=== PATIENT | female | born 1970 | race Caucasian/White ===

== ENCOUNTER 2019-04-07 12:58 | Emergency (ER) | payer OTHER ==
--- NOTE | 2019-04-07 13:16 | ERPHSYRPT ---
- History of Present Illness Time Seen by Provider: 04/07/19 13:09 Historian: patient, EMS Exam Limitations: no limitations Physician History: Patient is a 48-year-old female with spina bifida. She underwent a urologic procedure by Dr. Sosa at [facility] in [place]. Procedure was done last week. Patient has 2 abdominal wall stomas. There is abnormal fluid discharge from stoma site. Urologist was contacted and the doctor ordered transfer of the patient to [place]. However, ambulance service would not transport the patient to a distant facility without first being evaluated at a closer facility. I spoke with Dr. Sosa at 1300. He accepts the patient in transfer to [facility]. We are to perform a medical screening exam. Other work-up will be performed at [facility] under his care and direction Timing/Duration: today Activities at Onset: none Quality: aching Abdominal Pain Onset Location: epigastric Pain Radiation: no radiation Severity of Pain-Max: mild Severity of Pain-Current: mild Modifying Factors: Improves With: analgesics. Worsens With: vomiting Associated Symptoms: No chest pain, No diaphoresis, No diarrhea, No fever/chills , No loss of appetite, No nausea, No vomiting Previous symptoms: no prior history - Review of Systems Constitutional: No Symptoms Eyes: No Symptoms Ears, Nose, & Throat: No Symptoms Respiratory: No Symptoms Cardiac: No Symptoms Abdominal/Gastrointestinal: Abdominal Pain (mild epigastic) Genitourinary Symptoms: Other (abnl urostomy output) Musculoskeletal: No Symptoms Skin: No Symptoms Neurological: No Symptoms Psychological: No Symptoms Endocrine: No Symptoms Hematologic/Lymphatic: No Symptoms Immunological/Allergic: No Symptoms All Other Systems: Reviewed and Negative - Past Medical History Neurological History: Other Cardiac History: No Pertinent History Respiratory History: No Pertinent History Endocrine Medical History: Adrenal Insufficiency Musculoskeletal History: No Pertinent History GI Medical History: No Pertinent History History: No Pertinent History Psycho-Social History: No Pertinent History Female Reproductive Disorders: No Pertinent History Other Medical History: spina bifida, Thoracolumbar fusion, L sided ventricular peritoneal shunt - Past Surgical History Neuro Surgical History: No Pertinent History Cardiac: No Pertinent History Respiratory: No Pertinent History Gastrointestinal: No Pertinent History Genitourinary: Other Musculoskeletal: No Pertinent History - Physical Exam General Appearance: no apparent distress, alert Eye Exam: PERRL/EOMI, eyes nml inspection Ears, Nose, Throat Exam: normal ENT inspection, moist mucous membranes Neck Exam: normal inspection, non-tender, supple, full range of motion Respiratory Exam: normal breath sounds, lungs clear, airway intact, No chest tenderness, No respiratory distress Cardiovascular Exam: regular rate/rhythm, normal heart sounds, normal peripheral pulses Gastrointestinal/Abdomen Exam: soft, normal bowel sounds, tenderness (mild epigastric), other (both abd wall ostomy sites with cathers in place) Pelvic Exam: not done Rectal Exam: not done Back Exam: normal inspection, normal range of motion, No CVA tenderness Extremity Exam: normal inspection, normal range of motion, pelvis stable Neurologic Exam: alert, oriented x 3, cooperative, 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 Ian Ortiz' nurse. She transferred me to Dr. Sosa, patient's urologist. He accepts the patient in transfer. He does not want the patient to go to the emergency department. We are to call the transfer center and a bed will be obtained and he will accept the patient in transfer. Counseled pt/family regarding: diagnosis - Departure Departure Disposition: Transfer Clinical Impression: Complication of urostomy Condition: Stable Critical Care Time: No Referrals: TENZIN LEMOS [Primary Care Provider] -
[2019-04-07] MEDS ORDERED: Hydromorphone 1 mg/ml Ampule IV ONE (13:44)
[2019-04-07] MEDS ORDERED: Zofran 4 MG/2 ML VIAL IV ONE (13:45)
[2019-04-07] MEDS ORDERED: Zofran 4 MG/2 ML VIAL ONE (13:47)
[2019-04-07] MEDS ORDERED: Hydromorphone 1 mg/ml Ampule ONE (13:48)
[2019-04-07 15:56] VITALS: BP 100/56; PULSE 100; O2SAT 94
== END 2019-04-07 17:03 | disposition short-term general hospital (02) ==
LOC: ED 12:58
DX: N99.528 Other complication of incontinent external stoma of urinary tract (principal); Z98.890 Other specified postprocedural states
CPT/HCPCS: 36000; 93041; 96374; 96375; 99285; J1170; J2405

== ENCOUNTER 2021-09-21 14:30 | Emergency (ER) | payer OTHER ==
--- NOTE | 2021-09-21 14:54 | ERPHSYRPT ---
- History of Present Illness Time Seen by Provider: 09/21/21 14:54 Source: patient Exam Limitations: no limitations Physician History: This is a 51-year-old white female has a history of spina bifida and adrenal insufficiency and does not have sensation in her lower extremities and does not ambulate, who presents with tip of her toes on the left and right feet that a family puppy bit 2 days ago. She has been keeping the area clean but this morning, she noticed there was some blood in both of these areas and when looking more closely at it, the bite sites were larger. She thinks the dog bit the same sites again last night while she was sleeping. Her tetanus status is not up-to-date Timing/Duration: day(s) (2) Severity: mild Location: feet (The second left toe and the second and third right toe tips have bite dumont present.) Possible Causes: other (Dog bite) Allergies/Adverse Reactions: latex Allergy (Verified 09/21/21 14:52) Hx Tetanus, Diphtheria Vaccination/Date Given: No Hx Influenza Vaccination/Date Given: No Hx Pneumococcal Vaccination/Date Given: No Travel Risk - International Travel Have you traveled outside of the country in past 3 weeks: No - Coronavirus Screening Are you exhibiting any of the following symptoms?: No Close contact with a COVID-19 positive Pt in past 14-21 Days: No - Review of Systems Constitutional: No Symptoms Eyes: No Symptoms Ears, Nose, & Throat: No Symptoms Respiratory: No Symptoms Cardiac: No Symptoms Abdominal/Gastrointestinal: No Symptoms Genitourinary Symptoms: No Symptoms Musculoskeletal: No Symptoms Skin: Cellulitis (Mild in the area of dog bites as stated above), Other (Dog bite to toes as stated above) Neurological: No Symptoms Psychological: No Symptoms Endocrine: No Symptoms Hematologic/Lymphatic: No Symptoms Immunological/Allergic: No Symptoms All Other Systems: Reviewed and Negative - Past Medical History Pertinent Past Medical History: Yes Neurological History: Other Cardiac History: No Pertinent History Respiratory History: No Pertinent History Endocrine Medical History: Adrenal Insufficiency Musculoskeletal History: No Pertinent History GI Medical History: No Pertinent History History: No Pertinent History Psycho-Social History: No Pertinent History Female Reproductive Disorders: No Pertinent History Other Medical History: spina bifida, Thoracolumbar fusion, L sided ventricular peritoneal shunt - Past Surgical History Past Surgical History: Yes Neuro Surgical History: No Pertinent History Cardiac: No Pertinent History Respiratory: No Pertinent History Gastrointestinal: No Pertinent History Genitourinary: Other Musculoskeletal: No Pertinent History Other Surgical History: stoma tube cath. supra pubic cath. shunt. back. bladder. gisella. breast reduction - Social History Smoking Status: Never smoker Exposure to second hand smoke: Yes Drug Use: none Patient Lives Alone: No - Nursing Vital Signs Nursing Vital Signs: Initial Vital Signs Temperature 98.4 F 09/21/21 14:53 Pulse Rate 93 H 09/21/21 14:53 Respiratory Rate 17 09/21/21 14:53 Blood Pressure 118/79 09/21/21 14:53 O2 Sat by Pulse Oximetry 99 09/21/21 14:53 Pain Scale Pain Intensity 0 - Physical Exam General Appearance: no apparent distress, alert Eye Exam: PERRL/EOMI, eyes nml inspection Ears, Nose, Throat Exam: normal ENT inspection, moist mucous membranes Neck Exam: normal inspection, non-tender, supple, full range of motion Respiratory Exam: normal breath sounds, lungs clear, airway intact, No chest tenderness, No respiratory distress Cardiovascular Exam: regular rate/rhythm, normal heart sounds, normal peripheral pulses Gastrointestinal/Abdomen Exam: No tenderness Pelvic Exam: not done Rectal Exam: not done Back Exam: normal inspection, normal range of motion, No CVA tenderness, No vertebral tenderness Extremity Exam: other (Patient's bilateral lower extremities are compatible with individuals with spina bifida. She has open sores caused by dog bites on the second toe of the left foot and the second and third toes of the right foot. There is mild redness of each of these toes that is just proximal to the open ulcerati) Skin Exam: other (There is no evidence of proximal streaking onto the feet bilaterally) Lymphatic Exam: No adenopathy SpO2 Interpretation: normal O2 Delivery: Room Air - Course Nursing assessment & vital signs reviewed: Yes Ordered Tests: Medication Summary Discontinued Medications Generic Name Dose Route Start Last Admin Trade Name Freq PRN Reason Stop Dose Admin Amoxicillin/Clavulanate Potassium 500 mg 09/21/21 15:15 Amox Tr/Potassium Clavulanate 500 Mg Tablet PO 09/21/21 15:16 STAT ONE Amoxicillin/Clavulanate Potassium Confirm 09/21/21 15:17 Amox Tr/Potassium Clavulanate 500 Mg Tablet Administered 09/21/21 15:18 Dose 500 mg .ROUTE .STK-MED ONE Diphtheria/Tetanus/Acell Pertussis 0.5 ml 09/21/21 15:14 Tdap --Diph,Pertuss(Acell),Tet Vac/Pf 0.5 Ml Vial IM 09/21/21 15:15 .ONCE ONE Diphtheria/Tetanus/Acell Pertussis Confirm 09/21/21 15:17 Tdap --Diph,Pertuss(Acell),Tet Vac/Pf 0.5 Ml Vial Administered 09/21/21 15:18 Dose 0.5 ml IM .STK-MED ONE - Progress Progress: unchanged Counseled pt/family regarding: diagnosis, need for follow-up, rad results - Departure Departure Disposition: Home Clinical Impression: Dog bite of foot, Cellulitis Condition: Stable Critical Care Time: No Referrals: TENZIN LEMOS [Primary Care Provider] - Follow up/PCP as directed Additional Instructions: Keep bite sites clean daily with soap and water. Take the antibiotics as prescribed. Follow-up with your primary care physician for worsening symptoms or persistent symptoms. Prescriptions: Amoxicillin/Potassium Clav [Augmentin 500-125 Tablet] 1 each PO TID 5 Days #15 tablet
[2021-09-21] MEDS ORDERED: Adacel Vial IM ONE ×2 (15:14→15:17)
[2021-09-21] MEDS ORDERED: Augmentin 500-125 Tablet PO ONE (15:15)
[2021-09-21 15:17] VITALS: O2SAT 99
[2021-09-21] MEDS ORDERED: Augmentin 500-125 Tablet ONE (15:17)
[2021-09-21 15:34] VITALS: BP 160/77; PULSE 96
== END 2021-09-21 15:43 | disposition home or self-care (01) ==
LOC: ED 14:30
DX: S90.475A Other superficial bite of left lesser toe(s), initial encounter (principal); S90.474A Other superficial bite of right lesser toe(s), initial encounter; L03.032 Cellulitis of left toe; L03.031 Cellulitis of right toe; W54.0XXA Bitten by dog, initial encounter; Q05.9 Spina bifida, unspecified; E27.40 Unspecified adrenocortical insufficiency
CPT/HCPCS: 90471; 90715; 99282; A9270-GY

== ENCOUNTER 2022-11-22 15:29 | Emergency (ER) | payer MEDICAID ==
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
[2022-11-22] MEDS ORDERED: KEFLEX 500 MG PO ONE (15:47)
[2022-11-22 15:52] VITALS: RESP 16; TEMP 97.8
[2022-11-22] MEDS ORDERED: KEFLEX 500 MG ONE (16:36)
[2022-11-22 17:02] VITALS: BP 108/74; PULSE 95; O2SAT 99
== END 2022-11-22 17:13 | disposition home or self-care (01) ==
LOC: ED 15:29
DX: T24.212A Burn of second degree of left thigh, initial encounter (principal); X10.0XXA Contact with hot drinks, initial encounter; Q05.9 Spina bifida, unspecified; Z28.310 Unvaccinated for COVID-19
CPT/HCPCS: 87070; 87077; 87186; 99282; A9270-GY

== ENCOUNTER 2023-01-08 14:27 | Emergency (ER) | payer MEDICAID ==
[2023-01-08 14:35] VITALS: TEMP 97
--- NOTE | 2023-01-08 14:40 | ERPHSYRPT ---
- History of Present Illness Time Seen by Provider: 01/08/23 14:39 Source: patient, EMS Exam Limitations: no limitations Physician History: This is a 52-year-old white female patient who was brought to the emergency department by the ambulance service/paramedics. Patient has a history of spina bifida, adrenal insufficiency and thoracolumbar fusion. She states in the last month she has noticed her bilateral lower extremities having increased swelling present. There was a blister to the top of her right foot which drained today while getting a bath. Timing/Duration: worse, other (Worsening swelling bilateral lower extremities in the last month) Quality: painful Severity: mild Location: feet (Bilateral feet and ankle swelling with) Associated Symptoms: blisters (Dorsal aspect right foot) Allergies/Adverse Reactions: latex Allergy (Verified 01/08/23 14:30) Hx Tetanus, Diphtheria Vaccination/Date Given: No Hx Influenza Vaccination/Date Given: No Hx Pneumococcal Vaccination/Date Given: No Travel Risk - International Travel Have you traveled outside of the country in past 3 weeks: No - Coronavirus Screening Are you exhibiting any of the following symptoms?: No Close contact with a COVID-19 positive Pt in past 14-21 Days: No - Vaccine Status Have you recieved a Covid-19 vaccination: No - Review of Systems Constitutional: No Symptoms Eyes: No Symptoms Ears, Nose, & Throat: No Symptoms Respiratory: No Symptoms Cardiac: No Symptoms Abdominal/Gastrointestinal: No Symptoms Genitourinary Symptoms: No Symptoms Musculoskeletal: No Symptoms Skin: Other (Swelling bilateral feet and ankles. Unroofed blister dorsal aspect right foot) Neurological: No Symptoms Psychological: No Symptoms Endocrine: No Symptoms Hematologic/Lymphatic: No Symptoms Immunological/Allergic: No Symptoms All Other Systems: Reviewed and Negative - Past Medical History Pertinent Past Medical History: Yes Neurological History: Other ENT History: No Pertinent History Cardiac History: No Pertinent History Respiratory History: No Pertinent History Endocrine Medical History: Adrenal Insufficiency Musculoskeletal History: No Pertinent History GI Medical History: No Pertinent History History: No Pertinent History Psycho-Social History: No Pertinent History Female Reproductive Disorders: No Pertinent History Other Medical History: spina bifida, Thoracolumbar fusion, L sided ventricular peritoneal shunt, - Past Surgical History Past Surgical History: Yes Neuro Surgical History: No Pertinent History Cardiac: No Pertinent History Respiratory: No Pertinent History Gastrointestinal: No Pertinent History Genitourinary: Other Musculoskeletal: No Pertinent History Other Surgical History: stoma tube cath. supra pubic cath. shunt. back. bladder. gisella. breast reduction - Social History Smoking Status: Never smoker Exposure to second hand smoke: Yes Drug Use: none Patient Lives Alone: No - Nursing Vital Signs Nursing Vital Signs: Initial Vital Signs Temperature 97.0 F 01/08/23 14:32 Pulse Rate 120 H 01/08/23 14:32 Respiratory Rate 16 01/08/23 14:32 Blood Pressure 103/73 01/08/23 14:32 O2 Sat by Pulse Oximetry 100 01/08/23 14:32 Pain Scale Pain Intensity 5 - Physical Exam General Appearance: no apparent distress, alert, anxiety Eye Exam: PERRL/EOMI, eyes nml inspection Ears, Nose, Throat Exam: normal ENT inspection, moist mucous membranes Neck Exam: normal inspection, non-tender, supple, full range of motion Respiratory Exam: No chest tenderness, No respiratory distress, No airway intact Cardiovascular Exam: tachycardia Gastrointestinal/Abdomen Exam: No tenderness Pelvic Exam: not done Rectal Exam: not done Extremity Exam: pelvis stable, other (Patient with spina bifida and thoracolumbar spine fusion. The patient has swelling to both feet and ankles. Patient does not ambulate. There is a blister that is unroofed on the dorsal aspect of the patient's right foot.) Neurologic Exam: alert, oriented x 3, cooperative Skin Exam: other (Unroofed blister dorsal aspect right foot) Lymphatic Exam: No adenopathy SpO2 Interpretation: normal SpO2: 100 O2 Delivery: Room Air - Course Nursing assessment & vital signs reviewed: Yes EKG Interpreted by Me: RATE ([id number]), Sinus Tach, NORMAL AXIS, NORMAL INTERVALS, NORMAL QRS, Other (No acute ischemic changes on today's twelve-lead EKG.) Ordered Tests: Active Orders 24 hr Category Date Time Status EKG-ER Only STAT Care 01/08/23 16:35 Active IV Insertion STAT Care 01/08/23 15:25 Active CBC W DIFF Stat Lab 01/08/23 16:40 Completed CMP Stat Lab 01/08/23 16:40 Completed CULTURE,URINE Stat Lab 01/08/23 16:57 Received TROPONIN Q4H Lab 01/08/23 16:40 Completed TROPONIN Q4H Lab 01/08/23 21:00 Received TROPONIN Q4H Lab 01/09/23 00:45 Ordered UA W/RFX UR CULTURE Stat Lab 01/08/23 16:57 Completed Medication Summary Generic Name Dose Route Start Last Admin Trade Name Maddi PRN Reason Stop Dose Admin Sodium Chloride 1,000 mls @ 500 mls/hr 01/08/23 18:30 01/08/23 21:01 Sodium Chloride 0.9% 1000 Ml IV 02/07/23 18:29 Infused .Q2H ANATOLIY Infusion Discontinued Medications Generic Name Dose Route Start Last Admin Trade Name Maddi PRN Reason Stop Dose Admin Ceftriaxone Sodium/Dextrose 1 g in 50 mls @ 100 mls/hr 01/08/23 18:34 01/08/23 19:21 Rocephin 1 Gm-D5w 50 Ml Bag IV 01/08/23 19:03 Infused STAT STA Infusion Ceftriaxone Sodium/Dextrose Confirm 01/08/23 18:49 Rocephin 1 Gm-D5w 50 Ml Bag Administered 01/08/23 18:50 Dose 1 g in 50 mls @ ud IV .STK-MED ONE Sodium Chloride 500 mls @ 500 mls/hr 01/08/23 20:18 01/08/23 20:24 Sodium Chloride 0.9% 500 Ml IV 01/08/23 21:17 500 mls/hr .Q1H ONE Administration Sodium Chloride Confirm 01/08/23 20:24 Sodium Chloride 0.9% 500 Ml Administered 01/08/23 20:25 Dose 500 mls @ ud IV .STK-MED ONE Lab/Rad Data: Laboratory Result Diagrams 01/08/23 16:40 01/08/23 16:40 Laboratory Results 01/08/23 01/08/23 01/08/23 Range/Units 16:57 16:40 16:40 WBC 12.7 H (4.0-10.5) x10^3/uL RBC 4.71 (4.1-5.4) x10^6/uL Hgb 13.8 (12.0-16.0) g/dL Hct 44.3 (35-47) % MCV 94.1 (78-100) fL MCH 29.3 (26-32) pg MCHC 31.2 L (32-36) g/dL RDW 13.2 (11.5-14.0) % Plt Count 502 H (150-450) x10^3/uL MPV 9.5 (7.5-11.0) fL Gran % 86.0 H (36.0-66.0) % Immature Gran % (Auto) 0.3 (0.00-0.4) % Nucleat RBC Rel Count 0.0 (0.00-0.1) % Eos # (Auto) 0.01 (0-0.5) x10^3/uL Immature Gran # (Auto) 0.04 H (0.00-0.03) x10^3u/L Absolute Lymphs (auto) 1.01 (1.0-4.6) x10^3/uL Absolute Monos (auto) 0.67 (0.0-1.3) x10^3/uL Absolute Nucleated RBC 0.00 (0.00-0.01) x10^3u/L Lymphocytes % 8.0 L (24.0-44.0) % Monocytes % 5.3 (0.0-12.0) % Eosinophils % 0.1 (0.00-5.0) % Basophils % 0.3 (0.0-0.4) % Absolute Granulocytes 10.88 H (1.4-6.9) x10^3/uL Basophils # 0.04 (0-0.4) x10^3/uL Sodium 140 (137-145) mmol/L Potassium 3.7 (3.5-5.1) mmol/L Chloride 112 H (98-107) mmol/L Carbon Dioxide 13 L* (22-30) mmol/L Anion Gap 18.7 H (5-15) MEQ/L BUN 25 H (7-17) mg/dL Creatinine 0.53 (0.52-1.04) mg/dL Estimated GFR 111.9 ML/MIN Glucose 108 H (74-106) mg/dL Calcium 9.7 (8.4-10.2) mg/dL Total Bilirubin 1.30 (0.2-1.3) mg/dL AST 20 (14-36) U/L ALT 17 (0-35) U/L Alkaline Phosphatase 123 (38-126) U/L Troponin I < 0.012 (0.000-0.034) ng/mL Serum Total Protein 8.2 (6.3-8.2) g/dL Albumin 4.6 (3.5-5.0) g/dL Urine Color Yellow (Yellow) Urine Appearance Turbid A (Clear) Urine pH >=9.0 A (4.6-8.0) Ur Specific [place] 1.015 (1.005-1.030) Urine Protein 300 A (Negative) Urine Glucose (UA) Negative (Negative) mg/dL Urine Ketones 15 A (Negative) Urine Blood Trace (Negative) Urine Nitrite Positive A (Negative) Urine Bilirubin Negative (Negative) Urine Urobilinogen 0.2 (0.2) mg/dL Ur Leukocyte Esterase Large A (Negative) U Hyaline Cast (Auto) 0-2 (0-2) /LPF Urine Microscopic RBC 3-5 (0-5) /HPF Urine Microscopic WBC >100 A (0-5) /HPF Ur Epithelial Cells Moderate A (None Seen) /HPF Calcium Oxalate Crystal 3-5 A (None Seen) /HPF Amorphous Crystals Rare A (None Seen) /HPF Urine Bacteria Many A (None Seen) /HPF Urine Yeast (Budding) Few A (None Seen) /HPF Urine Culture Reflexed YES (NO) - Progress Progress Note: 01/08/23 15:32 This patient's medical issue is 1 of moderate complexity. The level of complexity in the workup performed is based on review the patient's past medical history, review the patient's medication list, review the patient's drug allergy list, history present illness and physical findings on examination. Workup in this patient is to place an intravenous line, if possible, then provide the patient with Lasix, intravenously, obtain a CBC and CMP to evaluate the electrolytes and renal function. We will then provide the patient with wound care to the right foot. Plan is to refer her to wound care clinic. 01/08/23 21:25 I reviewed and interpreted the patient's laboratory data results. Patient has leukocytosis and a significant urinary tract infection. Her tachycardia sinus tach and secondary to her urinary tract infection. Her tachycardia has improved with IV hydration. 01/08/23 21:29 We will leave the blisters skin intact as it is. It is already been unroofed. We will place bacitracin ointment on the dorsal aspect of her right foot. We will then use a Telfa/nonstick gauze followed by Kerlix then an Mo wrap. We will then remotely send a prescription of Levaquin to her pharmacy [facility] will cover both a urinary tract infection and skin infection. We will also make arrangements for her to be seen in [facility] wound care clinic. Counseled pt/family regarding: lab results, diagnosis, need for follow-up Medical Desision Making - Independent Historian Additional History obtained from: Web Solutions Architect/EMT - Diagnostic Testing Diagnostic test were ordered, analyzed, and reviewed by me: Yes - Risk of complications The pt has a mod risk of morbidity or mortality based on: Need for prescription drug management - Departure Departure Disposition: Home Clinical Impression: Bilateral swelling of feet, Blister (nonthermal), right foot, initial encounter, Urinary tract infection Condition: Stable Critical Care Time: No Referrals: TENZIN LEMOS [Primary Care Provider] - Follow up/PCP as directed Additional Instructions: Continue your medication as prescribed. We will try to arrange outpatient wound care clinic appointment. Keep the current dressing in place on your right foot. Changed your right foot dressing once daily. After you remove the dressing and wash the site with soap and water. Blot dry or use a geography department chair to dry the site then apply antibiotic ointment of choice to the blistered area. Recover with a nonstick gauze then wrap the right foot and ankle with the Mo wrap. Prescriptions: Levofloxacin [Levaquin 500 MG Tablet] 500 mg PO DAILY #7 tablet
[2023-01-08 16:50] LABS: Absolute Neutrophil Ct (ANC) 10.88 x10^3/uL (1.4-6.9); BASOPHIL % 0.3 % (0.0-0.4); Basophil (Absolute #) 0.04 x10^3/uL (0-0.4); Eosinophil % 0.1 % (0.00-5.0); Eosinophil (Absolute #) 0.01 x10^3/uL (0-0.5); Hematocrit 44.3 % (35-47); Hemoglobin 13.8 g/dL (12.0-16.0); IMMATURE GRAN # 0.04 x10^3u/L (0.00-0.03); IMMATURE GRAN % 0.3 % (0.00-0.4); Lymphocyte (Absolute #) 1.01 x10^3/uL (1.0-4.6); Mean Cell Volume 94.1 fL (78-100); Mean Corpuscular Hemoglobin 29.3 pg (26-32); Mean Corpuscular Hgb Concent. 31.2 g/dL (32-36); Mean Platelet Volume 9.5 fL (7.5-11.0); Monocyte (Absolute #) 0.67 x10^3/uL (0.0-1.3); Monocytes % 5.3 % (0.0-12.0); Platelet Count 502 x10^3/uL (150-450); Red Blood Count 4.71 x10^6/uL (4.1-5.4); Red Cell Distribution Width 13.2 % (11.5-14.0); White Blood Count 12.7 x10^3/uL (4.0-10.5)
[2023-01-08 17:16] LABS: ALBUMIN 4.6 g/dL (3.5-5.0); ALKALINE PHOSPHATASE 123 U/L (38-126); ANION GAP 18.7 MEQ/L (5-15); BLOOD UREA NITROGEN 25 mg/dL (7-17); CHLORIDE 112 mmol/L (98-107); Calcium 9.7 mg/dL (8.4-10.2); Creatinine 1 0.53 mg/dL (0.52-1.04); EST GLOMERULAR FILTRATION RATE 111.9 ML/MIN; Glucose 108 mg/dL (74-106); Potassium 3.7 mmol/L (3.5-5.1); SGOT/AST 20 U/L (14-36); SGPT/ALT 17 U/L (0-35); SODIUM 140 mmol/L (137-145); TROPONIN < 0.012 ng/mL (0.000-0.034); Total Protein 8.2 g/dL (6.3-8.2)
[2023-01-08 17:19] LABS: Carbon Dioxide 13 mmol/L (22-30)
[2023-01-08] MEDS ORDERED: Sodium Chloride 0.9% 1000 ML 1,000 ML ONE (18:21)
[2023-01-08] MEDS ORDERED: Sodium Chloride 0.9% 1000 ML 1,000 ML IV SCH (18:30)
[2023-01-08] MEDS ORDERED: ROCEPHIN 1 Gm-D5w 50 ml Bag** 1 G/50 ML IVPB IV STA (18:34)
[2023-01-08] MEDS ORDERED: ROCEPHIN 1 Gm-D5w 50 ml Bag** 1 G/50 ML IVPB IV ONE (18:49)
[2023-01-08 19:19] LABS: ADD URINE CULTURE? YES (NO); Amourphous Crystal Rare /HPF (None Seen); Appearance Turbid (Clear); Bacteria Many /HPF (None Seen); Bilirubin Negative (Negative); Blood Trace (Negative); Budding Yeast Few /HPF (None Seen); Epithelial Cells Moderate /HPF (None Seen); Glucose, Urine Negative (Negative); Hyaline Casts 0-2 /LPF (0-2); Ketones 15 (Negative); Leukocyte Esterase Large (Negative); Nitrite Positive (Negative); Ph >=9.0 (4.6-8.0); Protein,Urine Dip 300 (Negative); Specific Gravity 1.015 (1.005-1.030); Urobilinogen 0.2 mg/dL (0.2); WBC >100 /HPF (0-5)
[2023-01-08] MEDS ORDERED: Sodium Chloride 0.9% 500 ML 500 ML IV ONE ×2 (20:18→20:24)
[2023-01-08 21:19] VITALS: BP 97/57; PULSE 104; RESP 21; O2SAT 100
[2023-01-08] MEDS ORDERED: BACIGUENT PACKET ONE (21:35)
== END 2023-01-08 23:07 | disposition home or self-care (01) ==
LOC: ED 14:27
DX: M79.89 Other specified soft tissue disorders (principal); S90.821A Blister (nonthermal), right foot, initial encounter; N39.0 Urinary tract infection, site not specified; Z28.310 Unvaccinated for COVID-19
CPT/HCPCS: 36000; 36415; 80053; 81001; 84484; 85025; 87077; 87086; 87186; 93005; 96365; 99284; J0696; A9270-GY

== ENCOUNTER 2023-01-13 11:11 | Emergency (ER) | payer MEDICAID ==
[2023-01-13 11:20] VITALS: RESP 20; TEMP 98.6; O2SAT 100
--- NOTE | 2023-01-13 11:50 | ERPHSYRPT ---
- History of Present Illness Time Seen by Provider: 01/13/23 11:15 Source: patient Exam Limitations: no limitations Patient Subjective Stated Complaint: Pt states "I started to get a blister on my foot and I came to the hospital the other day and the blisters popped and I needed to come back." Triage Nursing Assessment: PT presented alert and oriented X3, skin pwd. Pt able to speak in clear full sentences. PT resting comfortably on the be. Pt has large wound covering the top of right foot, several other smaller wounds on the left foot and lower legs on right. Physician History: Patient has large wound on the right foot and a smaller one on the left.. Has been treated with Levaquin and a few days of Keflex.No sensitivities have been done on the fluid from the lesions. Quality: burning Severity: moderate Location: feet Possible Causes: no cause identified Allergies/Adverse Reactions: latex Allergy (Verified 01/08/23 14:30) Hx Tetanus, Diphtheria Vaccination/Date Given: No Hx Influenza Vaccination/Date Given: No Hx Pneumococcal Vaccination/Date Given: No Immunizations Up to Date: No Travel Risk - International Travel Have you traveled outside of the country in past 3 weeks: No - Coronavirus Screening Are you exhibiting any of the following symptoms?: No Close contact with a COVID-19 positive Pt in past 14-21 Days: No - Vaccine Status Have you recieved a Covid-19 vaccination: No - Review of Systems Constitutional: No Fever, No Chills Eyes: No Symptoms Ears, Nose, & Throat: No Symptoms Respiratory: No Cough, No Dyspnea Cardiac: No Chest Pain, No Edema, No Syncope Abdominal/Gastrointestinal: No Abdominal Pain, No Nausea, No Vomiting, No Diarrhea Genitourinary Symptoms: No Dysuria Musculoskeletal: No Back Pain, No Neck Pain Skin: No Rash Neurological: No Dizziness, No Focal Weakness, No Sensory Changes Psychological: No Symptoms Endocrine: No Symptoms All Other Systems: Reviewed and Negative - Past Medical History Pertinent Past Medical History: Yes Neurological History: Other ENT History: No Pertinent History Cardiac History: No Pertinent History Respiratory History: No Pertinent History Endocrine Medical History: Adrenal Insufficiency Musculoskeletal History: No Pertinent History GI Medical History: No Pertinent History History: No Pertinent History Psycho-Social History: No Pertinent History Female Reproductive Disorders: No Pertinent History Other Medical History: spina bifida, Thoracolumbar fusion, L sided ventricular peritoneal shunt, - Past Surgical History Past Surgical History: Yes Neuro Surgical History: No Pertinent History Cardiac: No Pertinent History Respiratory: No Pertinent History Gastrointestinal: No Pertinent History Genitourinary: Other Musculoskeletal: No Pertinent History Other Surgical History: stoma tube cath. supra pubic cath. shunt. back. bladder. gisella. breast reduction - Social History Smoking Status: Never smoker Exposure to second hand smoke: Yes Drug Use: none Patient Lives Alone: No - Nursing Vital Signs Nursing Vital Signs: Initial Vital Signs Temperature 98.6 F 01/13/23 11:12 Pulse Rate 112 H 01/13/23 11:12 Respiratory Rate 20 01/13/23 11:12 Blood Pressure 108/88 01/13/23 11:12 O2 Sat by Pulse Oximetry 100 01/13/23 11:12 Pain Scale Pain Intensity 0 - Physical Exam General Appearance: no apparent distress, alert Eye Exam: PERRL/EOMI, eyes nml inspection Ears, Nose, Throat Exam: normal ENT inspection, pharynx normal, moist mucous membranes Neck Exam: normal inspection, non-tender, supple, full range of motion Respiratory Exam: normal breath sounds, lungs clear, No respiratory distress Cardiovascular Exam: regular rate/rhythm, normal heart sounds Gastrointestinal/Abdomen Exam: soft, mass, No tenderness Back Exam: normal inspection, normal range of motion, No CVA tenderness, No vertebral tenderness Extremity Exam: other (Vesicular rash and ulcers) Neurologic Exam: alert, oriented x 3, cooperative, normal mood/affect, sensation nml, No motor deficits Skin Exam: normal color, warm, dry SpO2: 100 - Course Nursing assessment & vital signs reviewed: Yes - Progress Progress: unchanged Medical Desision Making - Discussion of managment Care discussed with:: specialist (Spoke to wound care here at the hospital they will come down and evaluate to see what they can do to help her.) - Social Determinants of Health Limited access to: transportation - Departure Departure Disposition: Home Clinical Impression: Skin ulcers of foot, bilateral Condition: Stable Critical Care Time: No Referrals: TENZIN LEMOS [Primary Care Provider] - Follow up/PCP as directed Instructions: Wound Care (DC) Prescriptions: Doxycycline Hyclate 100 mg [Vibramycin 100 MG] 100 mg PO BID #14 tab
[2023-01-13 12:36] VITALS: BP 121/77; PULSE 111
[2023-01-14] MEDS ORDERED: BACIGUENT 30 GM TP SCH (10:00)
== END 2023-01-13 13:00 | disposition home or self-care (01) ==
LOC: ED 11:11
DX: L97.519 Non-pressure chronic ulcer of other part of right foot with unspecified severity (principal); L97.529 Non-pressure chronic ulcer of other part of left foot with unspecified severity; Z28.310 Unvaccinated for COVID-19
CPT/HCPCS: 99282; A9270-GY

== ENCOUNTER 2023-09-30 10:39 | Inpatient (IN) | payer MEDICAID ==
--- NOTE | 2023-09-30 10:56 | ERPHSYRPT ---
- History of Present Illness Time Seen by Provider: 09/30/23 10:53 Source: patient Exam Limitations: no limitations Patient Subjective Stated Complaint: Weakness Triage Nursing Assessment: Patient brought into ED per EMS and transferred to bed with assist of 4. Patient A+O x 3. Patient's skin pale, warm and dry. Patient complains of increased weakness. Physician History: Patient is a 53-year-old female history of spina bifida, paraplegic insensate from her waist down. Patient has been feeling weak. The weakness has been progressive over the past several days. Patient reports spiking a fever at home. Patient is currently afebrile. Patient reports that there is a cockroach problem in her home. We and patient both observed patient has active lesions and cellulitis of both lower extremities. Patient believes they are due to the roaches that have been crawling on her legs.. Patient is not aware of roaches crawling on her legs due to lack of sensation. Patient symptoms are progressive. Symptoms are moderate in intensity. No specific worsening or improving factors. Patient voices no other complaints or concerns at this time. Portions of this note were created with voice recognition technology. There may be grammatical, spelling, punctuation or sound alike errors Timing/Duration: day(s) (2 to 3 days) Severity: moderate Modifying Factors: Improves With: nothing Associated Symptoms: weakness, No chest pain Allergies/Adverse Reactions: latex Allergy (Verified 09/30/23 10:42) Home Medications: Potassium Chloride Tab* [Klor Con] 1 tab PO DAILY 09/30/23 [History] Hx Tetanus, Diphtheria Vaccination/Date Given: No Hx Influenza Vaccination/Date Given: No Hx Pneumococcal Vaccination/Date Given: No Immunizations Up to Date: Yes Travel Risk - International Travel Have you traveled outside of the country in past 3 weeks: No - Emerging Infectious Disease Are you exhibiting symptoms associated with any current EIDs: No - Review of Systems Constitutional: No Symptoms, No Fever, No Chills Eyes: No Symptoms Ears, Nose, & Throat: No Symptoms Respiratory: No Symptoms, No Cough, No Dyspnea Cardiac: No Symptoms, No Chest Pain, No Edema, No Syncope Abdominal/Gastrointestinal: No Symptoms, No Abdominal Pain, No Nausea, No Vomiting, No Diarrhea Genitourinary Symptoms: No Symptoms, No Dysuria Musculoskeletal: No Symptoms, No Back Pain, No Neck Pain Skin: No Symptoms, No Rash Neurological: No Symptoms, No Dizziness, No Focal Weakness, No Sensory Changes Psychological: No Symptoms Endocrine: No Symptoms Hematologic/Lymphatic: No Symptoms Immunological/Allergic: No Symptoms All Other Systems: Reviewed and Negative - Past Medical History Pertinent Past Medical History: Yes Neurological History: Other ENT History: No Pertinent History Cardiac History: No Pertinent History Respiratory History: No Pertinent History Endocrine Medical History: Adrenal Insufficiency Musculoskeletal History: No Pertinent History GI Medical History: No Pertinent History History: No Pertinent History Psycho-Social History: No Pertinent History Female Reproductive Disorders: No Pertinent History Other Medical History: spina bifida, Thoracolumbar fusion, L sided ventricular peritoneal shunt, - Past Surgical History Past Surgical History: Yes Neuro Surgical History: No Pertinent History Cardiac: No Pertinent History Respiratory: No Pertinent History Gastrointestinal: No Pertinent History Genitourinary: Other Musculoskeletal: No Pertinent History Other Surgical History: stoma tube cath. supra pubic cath. shunt. back. b ladder. gisella. breast reduction - Female History Hx Last Menstrual Period: [place] Hx Now: No - Social History Smoking Status: Never smoker Exposure to second hand smoke: No Drug Use: none Patient Lives Alone: No - Social Determinants of Health Will the patient participate in the screening: Yes Do you worry about a steady place to live?: No Do you have any problems with any of the following?: Pest (bugs,ants,or mice) In the past 12 months,have you had to go without utilities?: No Transportation Issues: No Has anyone in your support network made you feel unsafe?: No Have you or anyone in your house had to go without enough: No - Nursing Vital Signs Nursing Vital Signs: Initial Vital Signs Temperature 97.8 F 09/30/23 10:43 Pulse Rate 132 H 09/30/23 10:43 Respiratory Rate 20 09/30/23 10:43 Blood Pressure 101/69 09/30/23 10:43 O2 Sat by Pulse Oximetry 100 09/30/23 10:43 Pain Scale Pain Intensity 0 - Physical Exam General Appearance: no apparent distress, alert Eye Exam: PERRL/EOMI, eyes nml inspection Ears, Nose, Throat Exam: normal ENT inspection, moist mucous membranes Neck Exam: normal inspection, non-tender, supple, full range of motion Respiratory Exam: normal breath sounds, lungs clear, airway intact, No respiratory distress Cardiovascular Exam: regular rate/rhythm, normal heart sounds, normal peripheral pulses Gastrointestinal/Abdomen Exam: soft, normal bowel sounds, No tenderness, No mass Back Exam: normal inspection, normal range of motion, No CVA tenderness, No vertebral tenderness Extremity Exam: normal inspection, normal range of motion, pelvis stable, other (Bilateral lower extremity cellulitis. Flaccid lower extremity secondary to spina bifida.) Neurologic Exam: alert, oriented x 3, cooperative, normal mood/affect, nml cerebellar function, nml station & gait, sensation nml, No motor deficits Skin Exam: normal color, warm, dry, other (Excoriated lesions with superimposed cellulitis of both lower extremities. Cellulitis is localized. No obvious lym phangitis.), No rash Lymphatic Exam: No adenopathy SpO2 Interpretation: normal SpO2: 100 O2 Delivery: Room Air - Course Nursing assessment & vital signs reviewed: Yes EKG Interpreted by Me: RATE ([id number]), Sinus Tach, NORMAL AXIS, NORMAL INTERVALS, NORMAL QRS Ordered Tests: Active Orders 24 hr Category Date Time Status Incident Response Lead STAT Care 09/30/23 10:53 Active EKG-ER Only STAT Care 09/30/23 10:52 Active IV Insertion STAT Care 09/30/23 10:52 Active Pulse Oximetry (ED) STAT Care 09/30/23 10:52 Active Telemetry q4h Care 09/30/23 12:29 Active ACO SDOH Referral ONCE Cons 09/30/23 10:49 Active BLOOD CULTURE Stat Lab 09/30/23 11:55 Received CBC W DIFF Stat Lab 09/30/23 11:17 Completed CMP Stat Lab 09/30/23 11:17 Completed CULTURE,URINE Stat Lab 09/30/23 11:36 Received Lactic Acid Stat Lab 09/30/23 10:52 Completed UA W/RFX UR CULTURE Stat Lab 09/30/23 11:36 Completed Transfer Order Routine Transfer 09/30/23 Ordered Medication Summary Generic Name Dose Route Start Last Admin Trade Name Freq PRN Reason Stop Dose Admin Sodium Chloride 1,000 mls @ 100 mls/hr 09/30/23 11:00 09/30/23 11:50 Sodium Chloride 0.9% 1000 Ml IV 10/30/23 10:59 100 mls/hr .Q10H ANATOLIY Administration Magnesium Sulfate/Dextrose 100 mls @ 100 mls/hr 09/30/23 12:30 Magnesium 1 Gm / 100 Ml D5w IV 09/30/23 14:29 Q1H ANATOLIY Potassium Chloride 20 meq in 100 mls @ 50 mls/hr 09/30/23 12:30 Potassium Chloride 20 Meq In Water 100ml IV 09/30/23 16:29 Q2H ANATOLIY Discontinued Medications Generic Name Dose Route Start Last Admin Trade Name Freq PRN Reason Stop Dose Admin Piperacillin Sod/Tazobactam 100 mls @ 200 mls/hr 09/30/23 10:56 09/30/23 11:52 Sod 3.375 gm/ Sodium Chloride IV 09/30/23 11:25 200 mls/hr STAT ONE Administration Vancomycin HCl 1 gm in 200 mls @ 125 mls/hr 09/30/23 10:57 09/30/23 12:43 Vancomycin 1 Gram/200 Ml Bag IV 09/30/23 12:32 125 ml/hr STAT ONE 125 mls/hr Administration Sodium Chloride Confirm 09/30/23 11:46 Sodium Chloride 100ml Mini-Bag Plus Administered 09/30/23 11:47 Dose 100 mls @ ud IV .STK-MED ONE Vancomycin HCl Confirm 09/30/23 12:40 Vancomycin 1 Gram/200 Ml Bag Administered 09/30/23 12:41 Dose 1 gm in 200 mls @ ud IV .STK-MED ONE Piperacillin Sod/Tazobactam Sod Confirm 09/30/23 11:45 Piperacillin/Tazobactam Sodium 3.375 Gm Vial Administered 09/30/23 11:46 Dose 3.375 gm IV .STK-MED ONE Potassium Chloride 40 meq 09/30/23 12:29 Potassium Chloride Tab 10 Meq Tab PO 09/30/23 12:30 STAT ONE Lab/Rad Data: Laboratory Result Diagrams 09/30/23 11:17 09/30/23 11:17 Laboratory Results 09/30/23 09/30/23 09/30/23 Range/Units 11:36 11:17 11:17 WBC (3.98-10.04) x10^3/uL RBC (3.93-5.22) x10^6/uL Hgb (11.2-15.7) g/dL Hct (34.1-44.9) % MCV (79.4-94.8) fL MCH (25.6-32.2) pg MCHC (32.2-35.5) g/dL RDW (11.7-14.4) % Plt Count (182-369) x10^3/uL MPV (9.4-12.3) fL Gran % (34.0-71.1) % Immature Gran % (Auto) (0.001-0.429) % Nucleat RBC Rel Count (0.00-0.2) % Eos # (Auto) (0.04-0.36) x10^3/uL Immature Gran # (Auto) (0.001-0.031) x10^3u/L Absolute Lymphs (auto) (1.18-3.74) x10^3/uL Absolute Monos (auto) (0.24-0.86) x10^3/uL Absolute Nucleated RBC (0.00-0.012) x10^3u/L Lymphocytes % (19.3-51.7) % Monocytes % (4.7-12.5) % Eosinophils % (0.7-5.8) % Basophils % (0.1-1.2) % Absolute Granulocytes (1.56-6.13) x10^3/uL Basophils # (0.01-0.08) x10^3/uL Sodium 144 (135-145) mmol/L Potassium 2.8 L* (3.5-5.1) mmol/L Chloride 118 H (98-107) mmol/L Carbon Dioxide 8 L* (22-30) mmol/L Anion Gap 22.2 H (5-15) MEQ/L BUN 39 H (7-17) mg/dL Creatinine 0.72 (0.52-1.04) mg/dL Estimated GFR 100.5 ML/MIN Glucose 120 H (74-106) mg/dL Lactic Acid (0.4-2.0) Calcium 9.2 (8.4-10.2) mg/dL Total Bilirubin 1.40 H (0.2-1.3) mg/dL AST 17 (14-36) U/L ALT 18 (0-35) U/L Alkaline Phosphatase 136 H (38-126) U/L Serum Total Protein 7.0 (6.3-8.2) g/dL Albumin 3.6 (3.5-5.0) g/dL Urine Color [place] A (Yellow) Urine Appearance Turbid A (Clear) Urine pH 8.5 A (4.6-8.0) Ur Specific [place] 1.015 (1.005-1.030) Urine Protein 300 A (Negative) Urine Glucose (UA) Negative (Negative) mg/dL Urine Ketones Trace A (Negative) Urine Blood Small A (Negative) Urine Nitrite Negative (Negative) Urine Bilirubin Negative (Negative) Urine Urobilinogen 0.2 (0.2) mg/dL Ur Leukocyte Esterase Moderate A (Negative) U Hyaline Cast (Auto) None Seen (0-2) /LPF Urine Microscopic RBC 3-5 (0-5) /HPF Urine Microscopic WBC 6-10 A (0-5) /HPF Ur Epithelial Cells Rare (None Seen) /HPF Amorphous Crystals Moderate A (None Seen) /HPF Urine Bacteria Many A (None Seen) /HPF Urine Culture Reflexed YES (NO) Influenza Type A Ag NEGATIVE (NEGATIVE) Influenza Type B Ag NEGATIVE (NEGATIVE) RSV (PCR) NEGATIVE (NEGATIVE) SARS-CoV-2 (PCR) NEGATIVE (NEGATIVE) 09/30/23 09/30/23 Range/Units 11:17 10:52 WBC 13.8 H (3.98-10.04) x10^3/uL RBC 3.93 (3.93-5.22) x10^6/uL Hgb 12.0 (11.2-15.7) g/dL Hct 38.1 (34.1-44.9) % MCV 96.9 H (79.4-94.8) fL MCH 30.5 (25.6-32.2) pg MCHC 31.5 L (32.2-35.5) g/dL RDW 19.0 H (11.7-14.4) % Plt Count 387 H (182-369) x10^3/uL MPV 9.5 (9.4-12.3) fL Gran % 79.4 H (34.0-71.1) % Immature Gran % (Auto) 0.9 H (0.001-0.429) % Nucleat RBC Rel Count 0.0 (0.00-0.2) % Eos # (Auto) 0.11 (0.04-0.36) x10^3/uL Immature Gran # (Auto) 0.13 H (0.001-0.031) x10^3u/L Absolute Lymphs (auto) 1.68 (1.18-3.74) x10^3/uL Absolute Monos (auto) 0.87 H (0.24-0.86) x10^3/uL Absolute Nucleated RBC 0.00 (0.00-0.012) x10^3u/L Lymphocytes % 12.2 L (19.3-51.7) % Monocytes % 6.3 (4.7-12.5) % Eosinophils % 0.8 (0.7-5.8) % Basophils % 0.4 (0.1-1.2) % Absolute Granulocytes 10.94 H (1.56-6.13) x10^3/uL Basophils # 0.06 (0.01-0.08) x10^3/uL Sodium (135-145) mmol/L Potassium (3.5-5.1) mmol/L Chloride (98-107) mmol/L Carbon Dioxide (22-30) mmol/L Anion Gap (5-15) MEQ/L BUN (7-17) mg/dL Creatinine (0.52-1.04) mg/dL Estimated GFR ML/MIN Glucose (74-106) mg/dL Lactic Acid 1.7 (0.4-2.0) Calcium (8.4-10.2) mg/dL Total Bilirubin (0.2-1.3) mg/dL AST (14-36) U/L ALT (0-35) U/L Alkaline Phosphatase (38-126) U/L Serum Total Protein (6.3-8.2) g/dL Albumin (3.5-5.0) g/dL Urine Color (Yellow) Urine Appearance (Clear) Urine pH (4.6-8.0) Ur Specific [place] (1.005-1.030) Urine Protein (Negative) Urine Glucose (UA) (Negative) mg/dL Urine Ketones (Negative) Urine Blood (Negative) Urine Nitrite (Negative) Urine Bilirubin (Negative) Urine Urobilinogen (0.2) mg/dL Ur Leukocyte Esterase (Negative) U Hyaline Cast (Auto) (0-2) /LPF Urine Microscopic RBC (0-5) /HPF Urine Microscopic WBC (0-5) /HPF Ur Epithelial Cells (None Seen) /HPF Amorphous Crystals (None Seen) /HPF Urine Bacteria (None Seen) /HPF Urine Culture Reflexed (NO) Influenza Type A Ag (NEGATIVE) Influenza Type B Ag (NEGATIVE) RSV (PCR) (NEGATIVE) SARS-CoV-2 (PCR) (NEGATIVE) - Progress Progress: improved Progress Note: 53-year-old female presents to our ED via EMS for evaluation of generalized weakness, fever. Upon arrival patient was observed to be tachycardic. Patient states she has not eaten very much for the past several days. She has been feeling weak. Physical exam reveals cellulitis of both lower extremities. Small areas of excoriation. Patient believes that she has been bitten her legs by roaches. Patient states her home was infested with cockroaches and they are currently trying to remedy the problem. Urinalysis reveals a urinary tract infection. Patient received vancomycin and Zosyn. Potassium 2.8. Potassium replacement administered. Magnesium administered as well. IV fluids infusing. Patient reassessed. She feels much better. Patient will require hospitalization for further evaluation and treatment. I spoke to hospitalist 12:52 PM. Patient accepted to observation at that time. Plan of care discussed with patient. She agrees to admission [facility] for further evaluation and treatment. Portions of this note were created with voice recognition technology. There may be grammatical, spelling, punctuation or sound alike errors Complexity problem addressed is high. Patient presented with cellulitis tachycardia generalized weakness. No critical care time. Complexity of problem addressed is extensive. Test ordered test reviewed results analyzed and correlated clinically with history and physical exam. Management discussed with hospitalist who accepts admission to observation. Risk of complication and or risk of morbidity/mortality of patient management is high. Patient requires hospitalization for further evaluation and treatment. Vital stable. Time spent admit patient approximately 20 minutes. Plan of care established for shared decision making. No social determinants of health present impede follow-up. Portions of this note were created with voice recognition technology. There may be grammatical, spelling, punctuation or sound alike errors 09/30/23 12:59 09/30/23 13:00 Counseled pt/family regarding: lab results, diagnosis - Departure Departure Disposition: Observation Clinical Impression: Lower extremity cellulitis, Generalized weakness, Tachycardia, Leukocytosis, Thrombocytosis, Hypokalemia, High anion gap metabolic acidosis, UTI (urinary tract infection), Dehydration Condition: Stable Critical Care Time: No Referrals: [facility] [Primary Care Provider] - Follow up/PCP as directed
[2023-09-30 11:39] LABS: Absolute Neutrophil Ct (ANC) 10.94 x10^3/uL (1.56-6.13); BASOPHIL % 0.4 % (0.1-1.2); Basophil (Absolute #) 0.06 x10^3/uL (0.01-0.08); Eosinophil % 0.8 % (0.7-5.8); Eosinophil (Absolute #) 0.11 x10^3/uL (0.04-0.36); Hematocrit 38.1 % (34.1-44.9); IMMATURE GRAN # 0.13 x10^3u/L (0.001-0.031); IMMATURE GRAN % 0.9 % (0.001-0.429); Lymphocyte (Absolute #) 1.68 x10^3/uL (1.18-3.74); Lymphocytes % 12.2 % (19.3-51.7); Mean Cell Volume 96.9 fL (79.4-94.8); Mean Corpuscular Hemoglobin 30.5 pg (25.6-32.2); Mean Corpuscular Hgb Concent. 31.5 g/dL (32.2-35.5); Mean Platelet Volume 9.5 fL (9.4-12.3); Monocyte (Absolute #) 0.87 x10^3/uL (0.24-0.86); Monocytes % 6.3 % (4.7-12.5); Neutrophil % 79.4 % (34.0-71.1); Platelet Count 387 x10^3/uL (182-369); Red Blood Count 3.93 x10^6/uL (3.93-5.22); White Blood Count 13.8 x10^3/uL (3.98-10.04)
[2023-09-30 11:45] LABS: ALBUMIN 3.6 g/dL (3.5-5.0); ANION GAP 22.2 MEQ/L (5-15); BILIRUBIN,TOTAL 1.4 mg/dL (0.2-1.3); Calcium 9.2 mg/dL (8.4-10.2); Creatinine 1 0.72 mg/dL (0.52-1.04); EST GLOMERULAR FILTRATION RATE 100.5 ML/MIN
[2023-09-30] MEDS ORDERED: PIPERACILLIN/TAZOBACTAM IV ONE (11:45)
[2023-09-30] MEDS ORDERED: Sodium Chloride 100ML MINI-BAG PLUS 100 ML IV ONE (11:46)
[2023-09-30 11:50] LABS: Potassium 2.8 mmol/L (3.5-5.1)
[2023-09-30] MEDS: Sodium Chloride 0.9% 1000 ML 1,000 ML IV SCH (11:50)
[2023-09-30] MEDS: PIPERACILLIN/TAZOBACTAM 3.375 GM in Sodium Chloride 100ML MINI-BAG PLUS 100 ML IV ONE (11:52)
[2023-09-30 12:03] LABS: INFLUENZA A NEGATIVE (NEGATIVE); INFLUENZA B NEGATIVE (NEGATIVE); RESPIRATORY SYNCTIAL VIRUS NEGATIVE (NEGATIVE); SARS-CoV-2 Xpert Express NEGATIVE (NEGATIVE)
[2023-09-30 12:34] LABS: Appearance Turbid (Clear); Bacteria Many /HPF (None Seen); Bilirubin Negative (Negative); Blood Small (Negative); Epithelial Cells Rare /HPF (None Seen); Glucose, Urine Negative (Negative); Ketones Trace (Negative); Leukocyte Esterase Moderate (Negative); Nitrite Negative (Negative); Ph 8.5 (4.6-8.0); Protein,Urine Dip 300 (Negative); Specific Gravity 1.015 (1.005-1.030); Urobilinogen 0.2 mg/dL (0.2)
[2023-09-30 12:36] LABS: Hyaline Casts None Seen /LPF (0-2)
[2023-09-30 12:37] LABS: ADD URINE CULTURE? YES (NO); Amourphous Crystal Moderate /HPF (None Seen)
[2023-09-30] MEDS ORDERED: VANCOMYCIN 1 GRAM/200 ML BAG 1 GM/200 ML PIGGYBACK IV ONE (12:40)
[2023-09-30] MEDS: VANCOMYCIN 1 GRAM/200 ML BAG 1 GM/200 ML PIGGYBACK IV ONE (12:43)
[2023-09-30] MEDS ORDERED: Klor Con ONE ×2 (13:25→23:44)
[2023-09-30] MEDS: Klor Con PO ONE (13:27)
[2023-09-30] MEDS ORDERED: Zofran 4 MG/2 ML VIAL IV PRN (16:16)
[2023-09-30] MEDS ORDERED: TYLENOL 325 MG PO PRN (16:16)
--- NOTE | 2023-09-30 16:33 | PCM.HP ---
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 She also endorses BLE edema with multiple wounds in various stages of healing. Patient reports that the she believes her wounds are secondary to a cockroach infestation at her residence. Patient with stoma and normally does self cath but currently has suprapubic cath due to weakness. Denies cough, sob, cp, abdominal pain, ZEE, dizziness, N/V/D. 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) Skin: Cellulitis, Skin Lesions (BLE multiple in various stages of healing ) Neurological: Paralysis Psychological: No Symptoms Endocrine: No Symptoms Hematologic/Lymphatic: No Symptoms Immunological/Allergic: No Symptoms Medications & Allergies Home Medications: Home Medication List Potassium Chloride Tab* [Klor Con] 2 tab PO DAILY 09/30/23 [History Confirmed 09/30/23] Allergies/Adverse Reactions: Allergies Allergy/AdvReac Type Severity Reaction Status Date / Time latex Allergy Verified 09/30/23 14:50 - Past Medical History Past Medical History: Yes Neurological History: Other ENT History: No Pertinent History Cardiac History: No Pertinent History Respiratory History: No Pertinent History Endocrine Medical History: Adrenal Insufficiency Musculoskelatal History: No Pertinent History GI Medical History: No Pertinent History History: No Pertinent History Pyscho-Social History: No Pertinent History Reproductive Disorders: No Pertinent History Comment: spina bifida, Thoracolumbar fusion, L sided ventricular peritoneal shunt, - Female History Are you now?: No - Past Surgical History Past Surgical History: Yes Neuro Surgical History: No Pertinent History Cardiac History: No Pertinent History Respiratory Surgery: No Pertinent History GI Surgical History: No Pertinent History, Appendectomy Genitourinary Surgical Hx: Other Musculskeletal Surgical Hx: No Pertinent History Other Surgical History: stoma tube cath. supra pubic cath. shunt. back. bladder. breast reduction - Social History Smoking Status: Never smoker Exposure to second hand smoke: No Alcohol: None, Rarely Drug Use: none - Social Determinants of Health Will the patient participate in the screening: Yes Do you worry about a steady place to live?: No Do you have any problems with any of the following?: Pest (bugs,ants,or mice) In the past 12 months,have you had to go without utilities?: No Have you or anyone in your house had to go without enough: No Transportation Issues: No Has anyone in your support network made you feel unsafe?: No Does the patient want assistance with any of the above?: Yes Comment: yanes problem in the home - Physical Exam Vital Signs: Vital Signs - 24 hr Temp Pulse Resp BP BP Pulse Ox 09/30/23 15:56 98 09/30/23 15:08 98.3 F 122 H 16 123/81 98 09/30/23 14:50 121 H 96 09/30/23 13:04 100 09/30/23 13:00 123 H 18 118/87 09/30/23 12:31 125 H 16 82/59 09/30/23 12:00 127 H 16 113/76 100 09/30/23 11:51 126 H 18 99 09/30/23 11:32 100 09/30/23 10:43 97.8 F 132 H 20 101/69 100 General Appearance: no apparent distress Neurologic Exam: alert, oriented x 3, cooperative Eye Exam: PERRL/EOMI Ears, Nose, Throat Exam: normal ENT inspection Neck Exam: normal inspection Respiratory Exam: normal breath sounds, lungs clear Cardiovascular Exam: regular rate/rhythm, normal heart sounds Gastrointestinal/Abdomen Exam: other Extremity Exam: inflammation, swelling (BLE edema L>R 2+pitting/1 non-pitting erythema surrounding left foot), other (Flaccid lower extremity secondary to spina bifida) Skin Exam: other (BLE with multiple lesions in various stages of healing with superimposed cellulitis to LLE) Results - Labs Lab/Micro Results: Lab Results-Last 24 Hours 0809/30/23 09/30/23 Range/Units 10:52 11:17 11:17 WBC 13.8 H (3.98-10.04) x10^3/uL RBC 3.93 (3.93-5.22) x10^6/uL Hgb 12.0 (11.2-15.7) g/dL Hct 38.1 (34.1-44.9) % MCV 96.9 H (79.4-94.8) fL MCH 30.5 (25.6-32.2) pg MCHC 31.5 L (32.2-35.5) g/dL RDW 19.0 H (11.7-14.4) % Plt Count 387 H (182-369) x10^3/uL MPV 9.5 (9.4-12.3) fL Gran % 79.4 H (34.0-71.1) % Immature Gran % (Auto) 0.9 H (0.001-0.429) % Nucleat RBC Rel Count 0.0 (0.00-0.2) % Eos # (Auto) 0.11 (0.04-0.36) x10^3/uL Immature Gran # (Auto) 0.13 H (0.001-0.031) x10^3u/L Absolute Lymphs (auto) 1.68 (1.18-3.74) x10^3/uL Absolute Monos (auto) 0.87 H (0.24-0.86) x10^3/uL Absolute Nucleated RBC 0.00 (0.00-0.012) x10^3u/L Lymphocytes % 12.2 L (19.3-51.7) % Monocytes % 6.3 (4.7-12.5) % Eosinophils % 0.8 (0.7-5.8) % Basophils % 0.4 (0.1-1.2) % Absolute Granulocytes 10.94 H (1.56-6.13) x10^3/uL Basophils # 0.06 (0.01-0.08) x10^3/uL Sodium 144 (135-145) mmol/L Potassium 2.8 L* (3.5-5.1) mmol/L Chloride 118 H (98-107) mmol/L Carbon Dioxide 8 L* (22-30) mmol/L Anion Gap 22.2 H (5-15) MEQ/L BUN 39 H (7-17) mg/dL Creatinine 0.72 (0.52-1.04) mg/dL Estimated GFR 100.5 ML/MIN Glucose 120 H (74-106) mg/dL Lactic Acid 1.7 (0.4-2.0) Calcium 9.2 (8.4-10.2) mg/dL Total Bilirubin 1.40 H (0.2-1.3) mg/dL AST 17 (14-36) U/L ALT 18 (0-35) U/L Alkaline Phosphatase 136 H (38-126) U/L Serum Total Protein 7.0 (6.3-8.2) g/dL Albumin 3.6 (3.5-5.0) g/dL Urine Color (Yellow) Urine Appearance (Clear) Urine pH (4.6-8.0) Ur Specific [place] (1.005-1.030) Urine Protein (Negative) Urine Glucose (UA) (Negative) mg/dL Urine Ketones (Negative) Urine Blood (Negative) Urine Nitrite (Negative) Urine Bilirubin (Negative) Urine Urobilinogen (0.2) mg/dL Ur Leukocyte Esterase (Negative) U Hyaline Cast (Auto) (0-2) /LPF Urine Microscopic RBC (0-5) /HPF Urine Microscopic WBC (0-5) /HPF Ur Epithelial Cells (None Seen) /HPF Amorphous Crystals (None Seen) /HPF Urine Bacteria (None Seen) /HPF Urine Culture Reflexed (NO) Influenza Type A Ag (NEGATIVE) Influenza Type B Ag (NEGATIVE) RSV (PCR) (NEGATIVE) SARS-CoV-2 (PCR) (NEGATIVE) 09/30/23 09/30/23 Range/Units 11:17 11:36 WBC (3.98-10.04) x10^3/uL RBC (3.93-5.22) x10^6/uL Hgb (11.2-15.7) g/dL Hct (34.1-44.9) % MCV (79.4-94.8) fL MCH (25.6-32.2) pg MCHC (32.2-35.5) g/dL RDW (11.7-14.4) % Plt Count (182-369) x10^3/uL MPV (9.4-12.3) fL Gran % (34.0-71.1) % Immature Gran % (Auto) (0.001-0.429) % Nucleat RBC Rel Count (0.00-0.2) % Eos # (Auto) (0.04-0.36) x10^3/uL Immature Gran # (Auto) (0.001-0.031) x10^3u/L Absolute Lymphs (auto) (1.18-3.74) x10^3/uL Absolute Monos (auto) (0.24-0.86) x10^3/uL Absolute Nucleated RBC (0.00-0.012) x10^3u/L Lymphocytes % (19.3-51.7) % Monocytes % (4.7-12.5) % Eosinophils % (0.7-5.8) % Basophils % (0.1-1.2) % Absolute Granulocytes (1.56-6.13) x10^3/uL Basophils # (0.01-0.08) x10^3/uL Sodium (135-145) mmol/L Potassium (3.5-5.1) mmol/L Chloride (98-107) mmol/L Carbon Dioxide (22-30) mmol/L Anion Gap (5-15) MEQ/L BUN (7-17) mg/dL Creatinine (0.52-1.04) mg/dL Estimated GFR ML/MIN Glucose (74-106) mg/dL Lactic Acid (0.4-2.0) Calcium (8.4-10.2) mg/dL Total Bilirubin (0.2-1.3) mg/dL AST (14-36) U/L ALT (0-35) U/L Alkaline Phosphatase (38-126) U/L Serum Total Protein (6.3-8.2) g/dL Albumin (3.5-5.0) g/dL Urine Color [place] A (Yellow) Urine Appearance Turbid A (Clear) Urine pH 8.5 A (4.6-8.0) Ur Specific [place] 1.015 (1.005-1.030) Urine Protein 300 A (Negative) Urine Glucose (UA) Negative (Negative) mg/dL Urine Ketones Trace A (Negative) Urine Blood Small A (Negative) Urine Nitrite Negative (Negative) Urine Bilirubin Negative (Negative) Urine Urobilinogen 0.2 (0.2) mg/dL Ur Leukocyte Esterase Moderate A (Negative) U Hyaline Cast (Auto) None Seen (0-2) /LPF Urine Microscopic RBC 3-5 (0-5) /HPF Urine Microscopic WBC 6-10 A (0-5) /HPF Ur Epithelial Cells Rare (None Seen) /HPF Amorphous Crystals Moderate A (None Seen) /HPF Urine Bacteria Many A (None Seen) /HPF Urine Culture Reflexed YES (NO) Influenza Type A Ag NEGATIVE (NEGATIVE) Influenza Type B Ag NEGATIVE (NEGATIVE) RSV (PCR) NEGATIVE (NEGATIVE) SARS-CoV-2 (PCR) NEGATIVE (NEGATIVE) Assessment/Plan (1) Sepsis Current Visit: Yes Status: Acute Assessment & Plan: -multifactoral with UTI/cellulitis -meets criteria with HR at 122, WBC at 13.8, and known source of infection -LA WNL -Vanc/zosyn started in ED, will continue -Lovenox -Blood and urine cultures pending - will follow and adjust abx accordingly (2) UTI (urinary tract infection) Current Visit: Yes Status: Acute Assessment & Plan: -UA suspicious for UTI, see sepsis -follow culture Code(s): N39.0 - URINARY TRACT INFECTION, SITE NOT SPECIFIED (3) Lower extremity cellulitis Current Visit: Yes Status: Acute Assessment & Plan: -BLE with multiple lesions -wound culture -gabriel borders -elevated BLE -venous doppler BLE -H/o of MRSA -vanc/zosyn (4) Hypokalemia Current Visit: Yes Status: Acute Assessment & Plan: -Received 40meq po in ED with 40meq ordered IV - -TELE -Recheck according to protocol Code(s): E87.6 - HYPOKALEMIA (5) High anion gap metabolic acidosis Current Visit: Yes Status: Acute Assessment & Plan: -beta hydroxybutyric acid level, salicylate level -bicarb drip Code(s): E87.29 - OTHER ACIDOSIS (6) Spina bifida Current Visit: Yes Status: Acute Assessment & Plan: -noted, adds complexity Code(s): Q05.9 - SPINA BIFIDA, UNSPECIFIED (7) Generalized weakness Current Visit: Yes Status: Acute Assessment & Plan: -PT/OT -Most likely secondary to acidosis Code(s): R53.1 - WEAKNESS (8) Leukocytosis Current Visit: Yes Status: Acute Assessment & Plan: -Most likely secondary to UTI/Cellulitis Code(s): D72.829 - ELEVATED WHITE BLOOD CELL COUNT, UNSPECIFIED (9) Tachycardia Current Visit: Yes Status: Acute Assessment & Plan: -EKG with sinus tach -Most likely secondary to infection/hypovolemia - IVF VTE: lovenox PPI: Protonix Dispo: 2-3 days Code status: SCO Code(s): R00.0 - TACHYCARDIA, UNSPECIFIED Telemedicine Encounter - Telemedicine Encounter Telemedicine Encounter: "The entirety of this encounter was performed via Telemedicine" This visit was performed using real-time audio and video connection between my location and thepatients locationwith the assistance of a surrogateat the patients location. Written or verbal consent was obtained from the patient/guardian to perform this visit usingsynchronoustelemedicine technology. Any patient questions regarding the telemedicine interaction were answered.
[2023-09-30] MEDS: Sodium Bicarbonate 50 MEQ/50 ML VIAL*** 150 MEQ in Dextrose 5%/Water IV Soln. 1000 ML 1... IV SCH (16:55)
[2023-09-30] MEDS: ENOXAPARIN SODIUM SQ SCH ×2 (18:02→21:56)
[2023-09-30] MEDS: PIPERACILLIN/TAZOBACTAM 3.375 GM in Sodium Chloride 100ML MINI-BAG PLUS 100 ML IV SCH (18:12)
[2023-09-30 18:31] LABS: ANION GAP 14.1 MEQ/L (5-15); BLOOD UREA NITROGEN 29 mg/dL (7-17); CHLORIDE 120 mmol/L (98-107); Creatinine 1 0.43 mg/dL (0.52-1.04); Glucose 167 mg/dL (74-106); MAGNESIUM 2.2 mg/dL (1.6-2.3); Potassium 3.3 mmol/L (3.5-5.1); SALICYLATE < 1.0 mg/dL (2-20); SODIUM 139 mmol/L (135-145)
[2023-09-30 18:42] LABS: Carbon Dioxide 8 mmol/L (22-30)
--- NOTE | 2023-09-30 18:59 | XRAY ---
Indication: Bilateral leg edema/erythema. Two-dimensional sonogram and color Doppler imaging major venous vessels left and right leg performed. Comparison: None Left leg demonstrates occluding thrombi in the common femoral and throughout femoral veins. No other thrombus seen in the remaining deep venous vessels left and right leg including greater saphenous vein. Patent veins demonstrate normal compressibility and normal venous waveforms. Impression: Nonoccluding DVT left leg. Right leg negative for DVT.
[2023-09-30] MEDS: Magnesium 1 Gm / 100 Ml D5W*** 100 ML IV SCH (19:22)
[2023-09-30] MEDS ORDERED: POTASSIUM CHLORIDE 20 mEq IN WATER 100ML 100 ML IV ONE (19:34)
[2023-09-30] MEDS: POTASSIUM CHLORIDE 20 mEq IN WATER 100ML 20 MEQ/100 ML BAG IV SCH (19:35)
[2023-09-30] MEDS: VANCOCIN 500 MG VIAL*** 500 MG in Sodium Chloride 100ML MINI-BAG PLUS 100 ML IV SCH (23:22)
[2023-09-30 23:28] LABS: ANION GAP 13.9 MEQ/L (5-15); Calcium 7.6 mg/dL (8.4-10.2); Creatinine 1 0.45 mg/dL (0.52-1.04); EST GLOMERULAR FILTRATION RATE 115.7 ML/MIN
[2023-09-30] MEDS: Klor Con PO SCH (23:52)
[2023-10-01] MEDS ORDERED: Klor Con ONE (02:58)
--- NOTE | 2023-10-01 05:21 | PCM.NOTE ---
Date and Time: 10/01/23 0516 Subjective Assessment: is a 53 year old female with a pmhx of spina bifida, paraplegic insensate from her waist down, suprapubic cath,and hydrocephalus who presented to ED 09/30/23 with complaints of weakness, nausea, poor appetite, subjective fevers, fatigue, and foul-smelling urine that started approximately four days ago. She also endorses BLE edema with multiple wounds in various stages of healing. Patient reports that the she believes her wounds are secondary to a cockroach infestation at her residence. Patient with stoma and normally does self cath but currently has suprapubic cath due to weakness. Denies cough, sob, cp, abdominal pain, ZEE, dizziness, N/V/D. Septic on presentation. Venous doppler positive for Nonoccluding DVT left leg. Right leg negative for DVT. Therapeutic lovenox started with Eliquis to follow in 24 hours at 10mg bid x 7 days, then 5mg bid there after. Labs remarkable for leukocytosis, hypokalemia, carbon dioxide at 8, elevated procal, and UA suspicious for infection. Blood/urine/ wound cultures pending. Patient started on vancomycin/zosyn for the treatment of cellulitis and UTI. 10/01/23: Met with patient bedside. Endorses improvement in weakness overnight.Appetite has improved also. Discussed doppler findings of DVT. Will transition to oral Eliquis and have CM check cost. Potassium now wnl. Patient remains in acidosis but improved with bicarb drip. Urine culture with gram - ID, wound and blood cultures pending. WBC now WNL. Will continue Vanc/Zosyn and follow wound/urine cultures. - Review of Systems Constitutional: Weakness Eyes: No Symptoms Ears, Nose, & Throat: No Symptoms Respiratory: No Symptoms Cardiac: No Symptoms Abdominal/Gastrointestinal: No Symptoms Genitourinary Symptoms: No Symptoms Musculoskeletal: No Symptoms Skin: Cellulitis, Skin Lesions Neurological: Paralysis (spina bifidal with paraplegic insensate from her waist down) Psychological: No Symptoms Endocrine: No Symptoms Hematologic/Lymphatic: No Symptoms Immunological/Allergic: No Symptoms Objective Exam General Appearance: no apparent distress Neurologic Exam: alert, oriented x 3, cooperative Skin Exam: other (BLE with multiple lesions in various stages of healing with superimposed cellulitis to LLE) Wound Assessment: Skin/Wound Assessment Wound/Incision Assessment Start: 09/30/23 15:39 Text: Status: Active Freq: Q6H Protocol: Document 10/01/23 02:00 LB (Rec: 10/01/23 02:54 LB [id number]) Wound/Incision Assessment BLE Wound Assessment Shift Assessment Wound Type cellulitous/bug bites Wound Stage Non Pressure Wound Drainage Amount None General Appearance Open to air Surrounding Tissue [place] Comment barrier cream applied PRN Wound Photo Photo Taken Yes Comment: in chart Eye Exam: PERRL Ears, Nose, Throat Exam: normal ENT inspection Neck Exam: normal inspection Respiratory Exam: normal breath sounds, lungs clear Cardiovascular Exam: regular rate/rhythm, normal heart sounds Gastrointestinal/Abdomen Exam: soft, normal bowel sounds Extremity Exam: inflammation, swelling, other (see wound assessment) Pelvic Exam: deferred Rectal Exam: deferred Objective Data Vital Signs: Vital Signs - 24 hr Temp Pulse Resp BP BP Pulse Ox 10/01/23 04:01 97.7 F 129 H 18 101/63 97 09/30/23 22:19 98.1 F 112 H 21 96/65 97 09/30/23 19:17 98 09/30/23 15:56 98 09/30/23 15:08 98.3 F 122 H 16 123/81 98 09/30/23 14:50 121 H 96 09/30/23 13:04 100 09/30/23 13:00 123 H 18 118/87 09/30/23 12:31 125 H 16 82/59 09/30/23 12:00 127 H 16 113/76 100 09/30/23 11:51 126 H 18 99 09/30/23 11:32 100 09/30/23 10:43 97.8 F 132 H 20 101/69 100 Pain Assessment - Last Documented Pain Intensity 4 Intake and Output: Intake & Output 09/28/23 09/29/23 09/30/23 10/01/23 11:59 11:59 11:59 11:59 Intake Total 1909 Output Total 100 Balance -100 1909 Weight 54.431 kg 43.7 kg Lab Results: Lab Results-Last 24 Hours 09/30/23 09/30/23 09/30/23 Range/Units 10:52 11:17 11:17 WBC 13.8 H (3.98-10.04) x10^3/uL RBC 3.93 (3.93-5.22) x10^6/uL Hgb 12.0 (11.2-15.7) g/dL Hct 38.1 (34.1-44.9) % MCV 96.9 H (79.4-94.8) fL MCH 30.5 (25.6-32.2) pg MCHC 31.5 L (32.2-35.5) g/dL RDW 19.0 H (11.7-14.4) % Plt Count 387 H (182-369) x10^3/uL MPV 9.5 (9.4-12.3) fL Gran % 79.4 H (34.0-71.1) % Immature Gran % (Auto) 0.9 H (0.001-0.429) % Nucleat RBC Rel Count 0.0 (0.00-0.2) % Eos # (Auto) 0.11 (0.04-0.36) x10^3/uL Immature Gran # (Auto) 0.13 H (0.001-0.031) x10^3u/L Absolute Lymphs (auto) 1.68 (1.18-3.74) x10^3/uL Absolute Monos (auto) 0.87 H (0.24-0.86) x10^3/uL Absolute Nucleated RBC 0.00 (0.00-0.012) x10^3u/L Lymphocytes % 12.2 L (19.3-51.7) % Monocytes % 6.3 (4.7-12.5) % Eosinophils % 0.8 (0.7-5.8) % Basophils % 0.4 (0.1-1.2) % Absolute Granulocytes 10.94 H (1.56-6.13) x10^3/uL Basophils # 0.06 (0.01-0.08) x10^3/uL ESR (0-20) mm/hr Sodium 144 (135-145) mmol/L Potassium 2.8 L* (3.5-5.1) mmol/L Chloride 118 H (98-107) mmol/L Carbon Dioxide 8 L* (22-30) mmol/L Anion Gap 22.2 H (5-15) MEQ/L BUN 39 H (7-17) mg/dL Creatinine 0.72 (0.52-1.04) mg/dL Estimated GFR 100.5 ML/MIN Glucose 120 H (74-106) mg/dL Lactic Acid 1.7 (0.4-2.0) Calcium 9.2 (8.4-10.2) mg/dL Magnesium (1.6-2.3) mg/dL Total Bilirubin 1.40 H (0.2-1.3) mg/dL AST 17 (14-36) U/L ALT 18 (0-35) U/L Alkaline Phosphatase 136 H (38-126) U/L Serum Total Protein 7.0 (6.3-8.2) g/dL Albumin 3.6 (3.5-5.0) g/dL Procalcitonin (0.030-0.080) ng/mL Urine Color (Yellow) Urine Appearance (Clear) Urine pH (4.6-8.0) Ur Specific [place] (1.005-1.030) Urine Protein (Negative) Urine Glucose (UA) (Negative) mg/dL Urine Ketones (Negative) Urine Blood (Negative) Urine Nitrite (Negative) Urine Bilirubin (Negative) Urine Urobilinogen (0.2) mg/dL Ur Leukocyte Esterase (Negative) U Hyaline Cast (Auto) (0-2) /LPF Urine Microscopic RBC (0-5) /HPF Urine Microscopic WBC (0-5) /HPF Ur Epithelial Cells (None Seen) /HPF Amorphous Crystals (None Seen) /HPF Urine Bacteria (None Seen) /HPF Urine Culture Reflexed (NO) Salicylates (2-20) mg/dL Influenza Type A Ag (NEGATIVE) Influenza Type B Ag (NEGATIVE) RSV (PCR) (NEGATIVE) SARS-CoV-2 (PCR) (NEGATIVE) 09/30/23 09/30/23 09/30/23 Range/Units 11:17 11:36 18:22 WBC (3.98-10.04) x10^3/uL RBC (3.93-5.22) x10^6/uL Hgb (11.2-15.7) g/dL Hct (34.1-44.9) % MCV (79.4-94.8) fL MCH (25.6-32.2) pg MCHC (32.2-35.5) g/dL RDW (11.7-14.4) % Plt Count (182-369) x10^3/uL MPV (9.4-12.3) fL Gran % (34.0-71.1) % Immature Gran % (Auto) (0.001-0.429) % Nucleat RBC Rel Count (0.00-0.2) % Eos # (Auto) (0.04-0.36) x10^3/uL Immature Gran # (Auto) (0.001-0.031) x10^3u/L Absolute Lymphs (auto) (1.18-3.74) x10^3/uL Absolute Monos (auto) (0.24-0.86) x10^3/uL Absolute Nucleated RBC (0.00-0.012) x10^3u/L Lymphocytes % (19.3-51.7) % Monocytes % (4.7-12.5) % Eosinophils % (0.7-5.8) % Basophils % (0.1-1.2) % Absolute Granulocytes (1.56-6.13) x10^3/uL Basophils # (0.01-0.08) x10^3/uL ESR (0-20) mm/hr Sodium 139 (135-145) mmol/L Potassium 3.3 L (3.5-5.1) mmol/L Chloride 120 H (98-107) mmol/L Carbon Dioxide 8 L* (22-30) mmol/L Anion Gap 14.1 (5-15) MEQ/L BUN 29 H (7-17) mg/dL Creatinine 0.43 L (0.52-1.04) mg/dL Estimated GFR 117.0 ML/MIN Glucose 167 H (74-106) mg/dL Lactic Acid (0.4-2.0) Calcium 8.0 L (8.4-10.2) mg/dL Magnesium 2.2 (1.6-2.3) mg/dL Total Bilirubin (0.2-1.3) mg/dL AST (14-36) U/L ALT (0-35) U/L Alkaline Phosphatase (38-126) U/L Serum Total Protein (6.3-8.2) g/dL Albumin (3.5-5.0) g/dL Procalcitonin (0.030-0.080) ng/mL Urine Color [place] A (Yellow) Urine Appearance Turbid A (Clear) Urine pH 8.5 A (4.6-8.0) Ur Specific [place] 1.015 (1.005-1.030) Urine Protein 300 A (Negative) Urine Glucose (UA) Negative (Negative) mg/dL Urine Ketones Trace A (Negative) Urine Blood Small A (Negative) Urine Nitrite Negative (Negative) Urine Bilirubin Negative (Negative) Urine Urobilinogen 0.2 (0.2) mg/dL Ur Leukocyte Esterase Moderate A (Negative) U Hyaline Cast (Auto) None Seen (0-2) /LPF Urine Microscopic RBC 3-5 (0-5) /HPF Urine Microscopic WBC 6-10 A (0-5) /HPF Ur Epithelial Cells Rare (None Seen) /HPF Amorphous Crystals Moderate A (None Seen) /HPF Urine Bacteria Many A (None Seen) /HPF Urine Culture Reflexed YES (NO) Salicylates < 1.0 L (2-20) mg/dL Influenza Type A Ag NEGATIVE (NEGATIVE) Influenza Type B Ag NEGATIVE (NEGATIVE) RSV (PCR) NEGATIVE (NEGATIVE) SARS-CoV-2 (PCR) NEGATIVE (NEGATIVE) 09/30/23 09/30/23 09/30/23 Range/Units 18:22 23:13 23:13 WBC (3.98-10.04) x10^3/uL RBC (3.93-5.22) x10^6/uL Hgb (11.2-15.7) g/dL Hct (34.1-44.9) % MCV (79.4-94.8) fL MCH (25.6-32.2) pg MCHC (32.2-35.5) g/dL RDW (11.7-14.4) % Plt Count (182-369) x10^3/uL MPV (9.4-12.3) fL Gran % (34.0-71.1) % Immature Gran % (Auto) (0.001-0.429) % Nucleat RBC Rel Count (0.00-0.2) % Eos # (Auto) (0.04-0.36) x10^3/uL Immature Gran # (Auto) (0.001-0.031) x10^3u/L Absolute Lymphs (auto) (1.18-3.74) x10^3/uL Absolute Monos (auto) (0.24-0.86) x10^3/uL Absolute Nucleated RBC (0.00-0.012) x10^3u/L Lymphocytes % (19.3-51.7) % Monocytes % (4.7-12.5) % Eosinophils % (0.7-5.8) % Basophils % (0.1-1.2) % Absolute Granulocytes (1.56-6.13) x10^3/uL Basophils # (0.01-0.08) x10^3/uL ESR 28 H (0-20) mm/hr Sodium 139 (135-145) mmol/L Potassium 3.0 L* (3.5-5.1) mmol/L Chloride 117 H (98-107) mmol/L Carbon Dioxide 11 L* (22-30) mmol/L Anion Gap 13.9 (5-15) MEQ/L BUN 27 H (7-17) mg/dL Creatinine 0.45 L (0.52-1.04) mg/dL Estimated GFR 115.7 ML/MIN Glucose 164 H (74-106) mg/dL Lactic Acid (0.4-2.0) Calcium 7.6 L (8.4-10.2) mg/dL Magnesium (1.6-2.3) mg/dL Total Bilirubin (0.2-1.3) mg/dL AST (14-36) U/L ALT (0-35) U/L Alkaline Phosphatase (38-126) U/L Serum Total Protein (6.3-8.2) g/dL Albumin (3.5-5.0) g/dL Procalcitonin 0.171 H (0.030-0.080) ng/mL Urine Color (Yellow) Urine Appearance (Clear) Urine pH (4.6-8.0) Ur Specific [place] (1.005-1.030) Urine Protein (Negative) Urine Glucose (UA) (Negative) mg/dL Urine Ketones (Negative) Urine Blood (Negative) Urine Nitrite (Negative) Urine Bilirubin (Negative) Urine Urobilinogen (0.2) mg/dL Ur Leukocyte Esterase (Negative) U Hyaline Cast (Auto) (0-2) /LPF Urine Microscopic RBC (0-5) /HPF Urine Microscopic WBC (0-5) /HPF Ur Epithelial Cells (None Seen) /HPF Amorphous Crystals (None Seen) /HPF Urine Bacteria (None Seen) /HPF Urine Culture Reflexed (NO) Salicylates (2-20) mg/dL Influenza Type A Ag (NEGATIVE) Influenza Type B Ag (NEGATIVE) RSV (PCR) (NEGATIVE) SARS-CoV-2 (PCR) (NEGATIVE) 09/30/23 Range/Units 23:37 WBC (3.98-10.04) x10^3/uL RBC (3.93-5.22) x10^6/uL Hgb (11.2-15.7) g/dL Hct (34.1-44.9) % MCV (79.4-94.8) fL MCH (25.6-32.2) pg MCHC (32.2-35.5) g/dL RDW (11.7-14.4) % Plt Count (182-369) x10^3/uL MPV (9.4-12.3) fL Gran % (34.0-71.1) % Immature Gran % (Auto) (0.001-0.429) % Nucleat RBC Rel Count (0.00-0.2) % Eos # (Auto) (0.04-0.36) x10^3/uL Immature Gran # (Auto) (0.001-0.031) x10^3u/L Absolute Lymphs (auto) (1.18-3.74) x10^3/uL Absolute Monos (auto) (0.24-0.86) x10^3/uL Absolute Nucleated RBC (0.00-0.012) x10^3u/L Lymphocytes % (19.3-51.7) % Monocytes % (4.7-12.5) % Eosinophils % (0.7-5.8) % Basophils % (0.1-1.2) % Absolute Granulocytes (1.56-6.13) x10^3/uL Basophils # (0.01-0.08) x10^3/uL ESR (0-20) mm/hr Sodium (135-145) mmol/L Potassium (3.5-5.1) mmol/L Chloride (98-107) mmol/L Carbon Dioxide (22-30) mmol/L Anion Gap (5-15) MEQ/L BUN (7-17) mg/dL Creatinine (0.52-1.04) mg/dL Estimated GFR ML/MIN Glucose (74-106) mg/dL Lactic Acid (0.4-2.0) Calcium (8.4-10.2) mg/dL Magnesium 2.1 (1.6-2.3) mg/dL Total Bilirubin (0.2-1.3) mg/dL AST (14-36) U/L ALT (0-35) U/L Alkaline Phosphatase (38-126) U/L Serum Total Protein (6.3-8.2) g/dL Albumin (3.5-5.0) g/dL Procalcitonin (0.030-0.080) ng/mL Urine Color (Yellow) Urine Appearance (Clear) Urine pH (4.6-8.0) Ur Specific [place] (1.005-1.030) Urine Protein (Negative) Urine Glucose (UA) (Negative) mg/dL Urine Ketones (Negative) Urine Blood (Negative) Urine Nitrite (Negative) Urine Bilirubin (Negative) Urine Urobilinogen (0.2) mg/dL Ur Leukocyte Esterase (Negative) U Hyaline Cast (Auto) (0-2) /LPF Urine Microscopic RBC (0-5) /HPF Urine Microscopic WBC (0-5) /HPF Ur Epithelial Cells (None Seen) /HPF Amorphous Crystals (None Seen) /HPF Urine Bacteria (None Seen) /HPF Urine Culture Reflexed (NO) Salicylates (2-20) mg/dL Influenza Type A Ag (NEGATIVE) Influenza Type B Ag (NEGATIVE) RSV (PCR) (NEGATIVE) SARS-CoV-2 (PCR) (NEGATIVE) Radiology Exams: Radiology Procedures Category Date Time Status VENOUS BILATERAL EXTREMITY [US] Stat Exams 09/30/23 16:46 Completed Multi-Disciplinary Progress Notes: Multi-Disciplinary Progress Notes 09/30/23 16:49 Pharmacy Note by Lamont Pereira Sodium Bicarb drip appears to be compatible at a Y-site with Vancomycin, Zosyn, Potassium and Magnesium. Initialized on 08/20/24 16:49 - END OF NOTE 09/30/23 16:48 Pharmacy Note by Lamont Pereira Vancomycin dosed at 500mg q12h. Will check trough and adjust if needed. Initialized on 09/30/23 16:48 - END OF NOTE Assessment/Plan (1) Sepsis Current Visit: Yes Status: Acute Assessment & Plan: -multifactoral with UTI/cellulitis -meets criteria with HR at 122, WBC at 13.8, and known source of infection -LA WNL -Vanc/zosyn started in ED, will continue -Lovenox -Blood and urine cultures pending - will follow and adjust abx accordingly 09/30: -Wound cultures pending -Urine culture with gram - ID -WBC now wnl -Continue vanc/zosyn for now- pending wound cultures h/o MRSA (2) UTI (urinary tract infection) Current Visit: Yes Status: Acute Assessment & Plan: -UA suspicious for UTI, Culture with gram - ID see sepsis -follow culture Code(s): N39.0 - URINARY TRACT INFECTION, SITE NOT SPECIFIED (3) Lower extremity cellulitis Current Visit: Yes Status: Acute Assessment & Plan: -BLE with multiple lesions -wound culture -gabriel borders -elevated BLE -venous doppler BLE -H/o of MRSA -vanc/zosyn (4) Hypokalemia Current Visit: Yes Status: Acute Assessment & Plan: -Received 40meq po in ED with 40meq ordered IV - -TELE -Recheck according to protocol 10/01/23: -resolved Code(s): E87.6 - HYPOKALEMIA (5) High anion gap metabolic acidosis Current Visit: Yes Status: Acute Assessment & Plan: -beta hydroxybutyric acid level, salicylate level -bicarb drip- improving -BMP q4h Code(s): E87.29 - OTHER ACIDOSIS (6) Spina bifida Current Visit: Yes Status: Acute Assessment & Plan: -noted, adds complexity Code(s): Q05.9 - SPINA BIFIDA, UNSPECIFIED (7) Generalized weakness Current Visit: Yes Status: Acute Assessment & Plan: -PT/OT -Most likely secondary to acidosis -improving Code(s): R53.1 - WEAKNESS (8) Leukocytosis Current Visit: Yes Status: Acute Assessment & Plan: -Most likely secondary to UTI/Cellulitis 09/30: -resolved Code(s): D72.829 - ELEVATED WHITE BLOOD CELL COUNT, UNSPECIFIED (9) Tachycardia Current Visit: Yes Status: Acute Assessment & Plan: -EKG with sinus tach -Most likely secondary to infection/hypovolemia - IVF VTE: lovenox PPI: Protonix Dispo: 2-3 days Code status: SCO (2) UTI (urinary tract infection) Current Visit: Yes Status: Acute Code(s): N39.0 - URINARY TRACT INFECTION, SITE NOT SPECIFIED (3) Lower extremity cellulitis Current Visit: Yes Status: Acute (4) Hypokalemia Current Visit: Yes Status: Acute Code(s): E87.6 - HYPOKALEMIA (5) High anion gap metabolic acidosis Current Visit: Yes Status: Acute Code(s): E87.29 - OTHER ACIDOSIS (6) Spina bifida Current Visit: Yes Status: Acute Code(s): Q05.9 - SPINA BIFIDA, UNSPECIFIED (7) Generalized weakness Current Visit: Yes Status: Acute Code(s): R53.1 - WEAKNESS (8) Leukocytosis Current Visit: Yes Status: Acute Code(s): D72.829 - ELEVATED WHITE BLOOD CELL COUNT, UNSPECIFIED (9) Tachycardia Current Visit: Yes Status: Acute Code(s): R00.0 - TACHYCARDIA, UNSPECIFIED
[2023-10-01 05:26] LABS: Absolute Neutrophil Ct (ANC) 6.54 x10^3/uL (1.56-6.13); BASOPHIL % 0.4 % (0.1-1.2); Basophil (Absolute #) 0.04 x10^3/uL (0.01-0.08); Eosinophil % 1.8 % (0.7-5.8); Eosinophil (Absolute #) 0.16 x10^3/uL (0.04-0.36); Hematocrit 24.8 % (34.1-44.9); Hemoglobin 8.3 g/dL (11.2-15.7); IMMATURE GRAN # 0.09 x10^3u/L (0.001-0.031); Lymphocyte (Absolute #) 1.53 x10^3/uL (1.18-3.74); Lymphocytes % 16.8 % (19.3-51.7); Mean Cell Volume 90.5 fL (79.4-94.8); Mean Corpuscular Hemoglobin 30.3 pg (25.6-32.2); Mean Corpuscular Hgb Concent. 33.5 g/dL (32.2-35.5); Mean Platelet Volume 8.8 fL (9.4-12.3); Monocyte (Absolute #) 0.73 x10^3/uL (0.24-0.86); Platelet Count 271 x10^3/uL (182-369); Red Blood Count 2.74 x10^6/uL (3.93-5.22); Red Cell Distribution Width 18.1 % (11.7-14.4); White Blood Count 9.1 x10^3/uL (3.98-10.04)
[2023-10-01 05:54] LABS: ALBUMIN 2.4 g/dL (3.5-5.0); ANION GAP 11.5 MEQ/L (5-15); BILIRUBIN,TOTAL 1.2 mg/dL (0.2-1.3); Calcium 7.3 mg/dL (8.4-10.2); Creatinine 1 0.42 mg/dL (0.52-1.04); EST GLOMERULAR FILTRATION RATE 117.6 ML/MIN; Potassium 3.6 mmol/L (3.5-5.1); Total Protein 5.1 g/dL (6.3-8.2)
[2023-10-01 09:04] LABS: Iron 56 ug/dL (37-170); Iron Saturation 34 % (20-39); TIBC 163 ug/dL (265-462)
[2023-10-01] MEDS: Klor Con PO SCH (09:51)
[2023-10-01] MEDS: ELIQUIS 2.5 MG TABLET PO SCH (09:52)
[2023-10-01] MEDS: PHARMACY DOSING REQUIRED: VANCOMYCIN IV STA (09:54)
[2023-10-01] MEDS ORDERED: Klor Con PO SCH (10:00)
[2023-10-01 10:01] LABS: Folate (Folic Acid) 6.4 ng/mL (2.76 - >20)
[2023-10-01 11:26] LABS: ANION GAP 12.4 MEQ/L (5-15); Calcium 7.7 mg/dL (8.4-10.2); Creatinine 1 0.68 mg/dL (0.52-1.04); EST GLOMERULAR FILTRATION RATE 104.7 ML/MIN; Potassium 3.7 mmol/L (3.5-5.1)
--- NOTE | 2023-10-01 13:34 | XRAY ---
Indication: MCFP placement. Comparison: None Portable chest inflated and clear. Heart not enlarged. Bony thorax intact with osteopenia, moderate dextroscoliosis, incompletely visualized thoracolumbar [place] rods/pedicle hooks, and incompletely visualized left ventricular peritoneal shunt catheter. Impression: Nonacute chest with chronic features.
[2023-10-01 15:08] LABS: ANION GAP 12.3 MEQ/L (5-15); Calcium 7.3 mg/dL (8.4-10.2); Creatinine 1 0.71 mg/dL (0.52-1.04); EST GLOMERULAR FILTRATION RATE 102.2 ML/MIN; Potassium 3.6 mmol/L (3.5-5.1)
[2023-10-01 18:44] LABS: ANION GAP 10.9 MEQ/L (5-15); Calcium 7.6 mg/dL (8.4-10.2); Creatinine 1 0.55 mg/dL (0.52-1.04); EST GLOMERULAR FILTRATION RATE 110.2 ML/MIN; Potassium 3.7 mmol/L (3.5-5.1)
[2023-10-01 22:52] LABS: ANION GAP 10.7 MEQ/L (5-15); Calcium 7.1 mg/dL (8.4-10.2); Creatinine 1 0.52 mg/dL (0.52-1.04); EST GLOMERULAR FILTRATION RATE 111.7 ML/MIN; Potassium 3.3 mmol/L (3.5-5.1)
[2023-10-02 04:45] LABS: Absolute Neutrophil Ct (ANC) 3.68 x10^3/uL (1.56-6.13); BASOPHIL % 0.6 % (0.1-1.2); Basophil (Absolute #) 0.04 x10^3/uL (0.01-0.08); Eosinophil % 2.6 % (0.7-5.8); Eosinophil (Absolute #) 0.17 x10^3/uL (0.04-0.36); Hematocrit 22.9 % (34.1-44.9); Hemoglobin 7.3 g/dL (11.2-15.7); IMMATURE GRAN # 0.16 x10^3u/L (0.001-0.031); IMMATURE GRAN % 2.4 % (0.001-0.429); Lymphocyte (Absolute #) 2.17 x10^3/uL (1.18-3.74); Lymphocytes % 32.7 % (19.3-51.7); Mean Cell Volume 94.2 fL (79.4-94.8); Mean Corpuscular Hgb Concent. 31.9 g/dL (32.2-35.5); Mean Platelet Volume 9.4 fL (9.4-12.3); Monocyte (Absolute #) 0.42 x10^3/uL (0.24-0.86); Monocytes % 6.3 % (4.7-12.5); Neutrophil % 55.4 % (34.0-71.1); Platelet Count 257 x10^3/uL (182-369); Red Blood Count 2.43 x10^6/uL (3.93-5.22); Red Cell Distribution Width 18.1 % (11.7-14.4); White Blood Count 6.6 x10^3/uL (3.98-10.04)
[2023-10-02 05:09] LABS: ANION GAP 7.3 MEQ/L (5-15); BILIRUBIN,TOTAL 0.7 mg/dL (0.2-1.3); Calcium 6.7 mg/dL (8.4-10.2); Creatinine 1 0.36 mg/dL (0.52-1.04); EST GLOMERULAR FILTRATION RATE 122.1 ML/MIN; Total Protein 4.4 g/dL (6.3-8.2)
--- NOTE | 2023-10-02 05:21 | PCM.NOTE ---
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 She also endorses BLE edema with multiple wounds in various stages of healing. Patient reports that the she believes her wounds are secondary to a cockroach infestation at her residence. Patient with stoma and normally does self cath but currently has suprapubic cath due to weakness. Denies cough, sob, cp, abdominal pain, ZEE, dizziness, N/V/D. Septic on presentation. Venous doppler positive for Nonoccluding DVT left leg. Right leg negative for DVT. Therapeutic lovenox started with Eliquis to follow in 24 hours at 10mg bid x 7 days, then 5mg bid there after. Labs remarkable for leukocytosis, hypokalemia, carbon dioxide at 8, elevated procal, and UA suspicious for infection. Blood/urine/ wound cultures pending. Patient started on vancomycin/zosyn for the treatment of cellulitis and UTI. Central line placed 10/02/23. 10/01/23: Met with patient bedside. Endorses improvement in weakness overnight.Appetite has improved also. Discussed doppler findings of DVT. Will transition to oral Eliquis and have CM check cost. Potassium now wnl. Patient remains in acidosis but improved with bicarb drip. Urine culture with gram - ID, wound and blood cultures pending. WBC now WNL. Will continue Vanc/Zosyn and follow wound/urine cultures. 10/02/23: Patient feeling much better today. Appetite and energy level continue to increase. Acidosis resolved. Urine culture with ECOLI. Blood and wound cultures pending. Plan to continue Vanc and zosyn pending final results of cultures. Patient deciding on placement. Central line placed yesterday. Will have PT look at BLE for wound therapy. Denies fever,cough, sob, cp, abdominal pain, ZEE, dizziness, N/V/D. - Review of Systems Constitutional: Weakness Eyes: No Symptoms Ears, Nose, & Throat: No Symptoms Respiratory: No Symptoms Cardiac: No Symptoms Abdominal/Gastrointestinal: No Symptoms Genitourinary Symptoms: No Symptoms Musculoskeletal: Deformity (spina bifida) Skin: Cellulitis, Skin Lesions Neurological: Paralysis (waist down paraplegia) Psychological: No Symptoms Endocrine: No Symptoms Hematologic/Lymphatic: No Symptoms Immunological/Allergic: No Symptoms Objective Exam General Appearance: no apparent distress Neurologic Exam: alert, oriented x 3, cooperative Skin Exam: other (see wound assessment) Wound Assessment: Skin/Wound Assessment Wound/Incision Assessment Start: 09/30/23 15:39 Text: Status: Active Freq: Q6H Protocol: Document 10/02/23 02:00 LB (Rec: 10/02/23 02:10 LB [id number]) Wound/Incision Assessment BLE Wound Assessment Shift Assessment Wound Type cellulitous/bug bites Wound Stage Non Pressure Wound Drainage Amount None General Appearance Open to air,Clean/Dry Surrounding Tissue Standish Comment barrier cream applied PRN. Wound Photo Photo Taken Yes Eye Exam: PERRL Ears, Nose, Throat Exam: normal ENT inspection Neck Exam: normal inspection Respiratory Exam: normal breath sounds, lungs clear Cardiovascular Exam: regular rate/rhythm, normal heart sounds Gastrointestinal/Abdomen Exam: soft, normal bowel sounds Extremity Exam: other (BLE with multiple open wound with purulent discharge/edema) Back Exam: normal inspection Pelvic Exam: deferred Rectal Exam: deferred Objective Data Vital Signs: Vital Signs - 24 hr Temp Pulse Resp BP BP Pulse Ox 10/02/23 04:00 97.9 F 101 H 15 111/69 98 10/02/23 00:00 98.5 F 94 H 16 102/69 98 10/01/23 19:47 97.8 F 105 H 18 103/64 99 10/01/23 18:25 98 10/01/23 16:00 98.5 F 116 H 16 111/69 98 10/01/23 15:00 101 H 10/01/23 11:47 98.4 F 103 H 16 93/59 97 10/01/23 10:05 98/65 94/64 10/01/23 07:14 97.1 F 105 H 18 84/61 96 10/01/23 07:12 96 Pain Assessment - Last Documented Pain Intensity 0 Intake and Output: Intake & Output 09/29/23 09/30/23 10/01/23 10/02/23 11:59 11:59 11:59 11:59 Intake Total 2150 3132 Output Total 100 852 650 Balance -100 1500 2482 Weight 54.431 kg 43.7 kg Lab Results: Lab Results-Last 24 Hours 10/01/23 10/01/23 10/01/23 Range/Units 05:00 05:00 05:22 WBC 9.1 (3.98-10.04) x10^3/uL RBC 2.74 L (3.93-5.22) x10^6/uL Hgb 8.3 L D (11.2-15.7) g/dL Hct 24.8 L (34.1-44.9) % MCV 90.5 D (79.4-94.8) fL MCH 30.3 (25.6-32.2) pg MCHC 33.5 (32.2-35.5) g/dL RDW 18.1 H (11.7-14.4) % Plt Count 271 (182-369) x10^3/uL MPV 8.8 L (9.4-12.3) fL Gran % 72.0 H (34.0-71.1) % Immature Gran % (Auto) 1.0 H (0.001-0.429) % Nucleat RBC Rel Count 0.0 (0.00-0.2) % Eos # (Auto) 0.16 (0.04-0.36) x10^3/uL Immature Gran # (Auto) 0.09 H (0.001-0.031) x10^3u/L Absolute Lymphs (auto) 1.53 (1.18-3.74) x10^3/uL Absolute Monos (auto) 0.73 (0.24-0.86) x10^3/uL Absolute Nucleated RBC 0.00 (0.00-0.012) x10^3u/L Lymphocytes % 16.8 L (19.3-51.7) % Monocytes % 8.0 (4.7-12.5) % Eosinophils % 1.8 (0.7-5.8) % Basophils % 0.4 (0.1-1.2) % Absolute Granulocytes 6.54 H (1.56-6.13) x10^3/uL Basophils # 0.04 (0.01-0.08) x10^3/uL Sodium (135-145) mmol/L Potassium (3.5-5.1) mmol/L Chloride (98-107) mmol/L Carbon Dioxide (22-30) mmol/L Anion Gap (5-15) MEQ/L BUN (7-17) mg/dL Creatinine (0.52-1.04) mg/dL Estimated GFR ML/MIN Glucose (74-106) mg/dL Calcium (8.4-10.2) mg/dL Magnesium (1.6-2.3) mg/dL Iron 56 (37-170) ug/dL TIBC 163 L (265-462) ug/dL Iron Saturation 34 (20-39) % Ferritin 116 (11.1-264) ng/mL Total Bilirubin (0.2-1.3) mg/dL AST (14-36) U/L ALT (0-35) U/L Alkaline Phosphatase (38-126) U/L Serum Total Protein (6.3-8.2) g/dL Albumin (3.5-5.0) g/dL Vitamin B12 209 L (239-931) pg/mL Folic Acid 6.40 (2.76 - >20) ng/mL 10/01/23 10/01/23 10/01/23 Range/Units 05:22 05:22 11:03 WBC (3.98-10.04) x10^3/uL RBC (3.93-5.22) x10^6/uL Hgb (11.2-15.7) g/dL Hct (34.1-44.9) % MCV (79.4-94.8) fL MCH (25.6-32.2) pg MCHC (32.2-35.5) g/dL RDW (11.7-14.4) % Plt Count (182-369) x10^3/uL MPV (9.4-12.3) fL Gran % (34.0-71.1) % Immature Gran % (Auto) (0.001-0.429) % Nucleat RBC Rel Count (0.00-0.2) % Eos # (Auto) (0.04-0.36) x10^3/uL Immature Gran # (Auto) (0.001-0.031) x10^3u/L Absolute Lymphs (auto) (1.18-3.74) x10^3/uL Absolute Monos (auto) (0.24-0.86) x10^3/uL Absolute Nucleated RBC (0.00-0.012) x10^3u/L Lymphocytes % (19.3-51.7) % Monocytes % (4.7-12.5) % Eosinophils % (0.7-5.8) % Basophils % (0.1-1.2) % Absolute Granulocytes (1.56-6.13) x10^3/uL Basophils # (0.01-0.08) x10^3/uL Sodium 139 141 (135-145) mmol/L Potassium 3.6 3.7 (3.5-5.1) mmol/L Chloride 117 H 115 H (98-107) mmol/L Carbon Dioxide 13 L* 17 L (22-30) mmol/L Anion Gap 11.5 12.4 (5-15) MEQ/L BUN 21 H 19 H (7-17) mg/dL Creatinine 0.42 L 0.68 (0.52-1.04) mg/dL Estimated GFR 117.6 104.7 ML/MIN Glucose 139 H 116 H (74-106) mg/dL Calcium 7.3 L 7.7 L (8.4-10.2) mg/dL Magnesium 2.0 (1.6-2.3) mg/dL Iron (37-170) ug/dL TIBC (265-462) ug/dL Iron Saturation (20-39) % Ferritin (11.1-264) ng/mL Total Bilirubin 1.20 (0.2-1.3) mg/dL AST 15 (14-36) U/L ALT 12 (0-35) U/L Alkaline Phosphatase 95 (38-126) U/L Serum Total Protein 5.1 L (6.3-8.2) g/dL Albumin 2.4 L (3.5-5.0) g/dL Vitamin B12 (239-931) pg/mL Folic Acid (2.76 - >20) ng/mL 10/01/23 10/01/23 10/01/23 Range/Units 14:20 18:25 22:30 WBC (3.98-10.04) x10^3/uL RBC (3.93-5.22) x10^6/uL Hgb (11.2-15.7) g/dL Hct (34.1-44.9) % MCV (79.4-94.8) fL MCH (25.6-32.2) pg MCHC (32.2-35.5) g/dL RDW (11.7-14.4) % Plt Count (182-369) x10^3/uL MPV (9.4-12.3) fL Gran % (34.0-71.1) % Immature Gran % (Auto) (0.001-0.429) % Nucleat RBC Rel Count (0.00-0.2) % Eos # (Auto) (0.04-0.36) x10^3/uL Immature Gran # (Auto) (0.001-0.031) x10^3u/L Absolute Lymphs (auto) (1.18-3.74) x10^3/uL Absolute Monos (auto) (0.24-0.86) x10^3/uL Absolute Nucleated RBC (0.00-0.012) x10^3u/L Lymphocytes % (19.3-51.7) % Monocytes % (4.7-12.5) % Eosinophils % (0.7-5.8) % Basophils % (0.1-1.2) % Absolute Granulocytes (1.56-6.13) x10^3/uL Basophils # (0.01-0.08) x10^3/uL Sodium 142 140 138 (135-145) mmol/L Potassium 3.6 3.7 3.3 L (3.5-5.1) mmol/L Chloride 118 H 116 H 113 H (98-107) mmol/L Carbon Dioxide 14 L* 17 L 18 L (22-30) mmol/L Anion Gap 12.3 10.9 10.7 (5-15) MEQ/L BUN 19 H 18 H 18 H (7-17) mg/dL Creatinine 0.71 0.55 0.52 (0.52-1.04) mg/dL Estimated GFR 102.2 110.2 111.7 ML/MIN Glucose 136 H 148 H 168 H (74-106) mg/dL Calcium 7.3 L 7.6 L 7.1 L (8.4-10.2) mg/dL Magnesium (1.6-2.3) mg/dL Iron (37-170) ug/dL TIBC (265-462) ug/dL Iron Saturation (20-39) % Ferritin (11.1-264) ng/mL Total Bilirubin (0.2-1.3) mg/dL AST (14-36) U/L ALT (0-35) U/L Alkaline Phosphatase (38-126) U/L Serum Total Protein (6.3-8.2) g/dL Albumin (3.5-5.0) g/dL Vitamin B12 (239-931) pg/mL Folic Acid (2.76 - >20) ng/mL Radiology Exams: Radiology Procedures Category Date Time Status CHEST 1 VIEW (PORTABLE) Stat Exams 10/01/23 17:05 Taken CHEST 1 VIEW (PORTABLE) Urgent Exams 10/01/23 13:04 Completed VENOUS BILATERAL EXTREMITY [US] Stat Exams 09/30/23 16:46 Completed Multi-Disciplinary Progress Notes: Multi-Disciplinary Progress Notes 10/01/23 14:41 Case Management Note by Ese Resendez PATIENT HAS [employer]- THEY REQUEST UPDATE WHEN PATIENT LEAVES AT [phone] Initialized on 10/01/23 14:41 - END OF NOTE 10/01/23 14:05 Case Management Note by Ese Resendez Addendum entered by Ese Resendez 10/01/23 14:41: PATIENT HAS [employer] 5 DAYS A WEEK BUT THE COMPANY IS NOT ABLE TO RELIABLY STAFF ALL OF HER HOURS. SHE STRUGGLES WITH TRANSPORTATION D/T HAVING TO RELY ON MEDICAL TRANSPORT OR AID SERVICES. SHE REPORTS [facility] HAS HELPED THEM ONCE WITH THE [employer] BUT THEY STILL HAVE THEM. WILL TRY TO CONTACT [facility] TO SEE IF THEY CAN ASSIST. Original Note: THIS FRAME STRIPPER HAD LONG CONVERSATION WITH PATIENT ABOUT HOME SITUATION. THIS FRAME STRIPPER FAMILIAR WITH PATIENT AND HER MOTHER THAT LIVES WITH HER. PATIENT HAS SPINAL BIFIDA AND REPORTS SHE TRANSFERS HERSELF TO AND FROM HER WHEELCHAIR AT HOME. PATIENT HAS MULTIPLE SCABS ON HER BRODY LEGS WITH OPEN AREAS NOTED. PATIENT REPORTS THEY HAVE WOOD INFESTATION DESPITE TREATING THEM SEVERAL TIMES. THEY DO GET HOME DELIVERED MEALS BUT PATIENT REPORTS SHE LOST HER APPETITE AND BECAME TOO WEAK TO GET THEM AND HER MOTHER WAS ALSO TOO WEAK TO GET THEM READY FOR HER. PATIENT TORN IN LEAVING HER MOTHER AT HOME BUT KNOWS SHE NEEDS TO AT LEAST DO A SHORT TERM REHAB STAY TO GET HER WOUNDS HEALED AND GET PROPER NUTRITION FOR HER WOUNDS TO HEAL. PATIENT CURRENTLY AGREEABLE TO CONSIDER GOING TO [facility] FOR SHORT TERM REHAB STAY- REFERRAL SENT [facility] PAPERWORK INITIATED-PENDING REVIEW Initialized on 10/01/23 14:05 - END OF NOTE Assessment/Plan (1) Sepsis Current Visit: Yes Status: Acute Assessment & Plan: -multifactoral with UTI/cellulitis -meets criteria with HR at 122, WBC at 13.8, and known source of infection -LA WNL -Vanc/zosyn started in ED, will continue -Lovenox -Blood and urine cultures pending - will follow and adjust abx accordingly 09/30: -Wound cultures pending -Urine culture with gram - ID -WBC now wnl -Continue vanc/zosyn for now- pending wound cultures h/o MRSA 10/01: -no longer meets sepsis criteria -wound and blood cult pending -ucult with ecoli - sensitivity to zosyn - will continue vanc/zosyn for now pending wound cultures (2) UTI (urinary tract infection) Current Visit: Yes Status: Acute Assessment & Plan: -UA suspicious for UTI, Culture with ecoli -see sepsis Code(s): N39.0 - URINARY TRACT INFECTION, SITE NOT SPECIFIED (3) Lower extremity cellulitis Current Visit: Yes Status: Acute Assessment & Plan: -BLE with multiple lesions -wound culture -gabriel borders -elevated BLE -venous doppler BLE -H/o of MRSA -vanc/zosyn (4) Hypokalemia Current Visit: Yes Status: Acute Assessment & Plan: -Received 40meq po in ED with 40meq ordered IV - -TELE -Recheck according to protocol 10/01/23: -resolved 10/02/23: -potassium at 3.0 this morning - replenished, now at 4.1 - continue to monitor Code(s): E87.6 - HYPOKALEMIA (5) High anion gap metabolic acidosis Current Visit: Yes Status: Acute Assessment & Plan: -beta hydroxybutyric acid level, salicylate level -bicarb drip- improving -BMP q4h 10/01: -resolved -dc bicarb gtt - oral bicarb 650mg bid - continue to monitor Code(s): E87.29 - OTHER ACIDOSIS (6) Spina bifida Current Visit: Yes Status: Acute Assessment & Plan: -noted, adds complexity Code(s): Q05.9 - SPINA BIFIDA, UNSPECIFIED (7) Generalized weakness Current Visit: Yes Status: Acute Assessment & Plan: -PT/OT -Most likely secondary to acidosis -improving 10/01: -improving Code(s): R53.1 - WEAKNESS (8) Leukocytosis Current Visit: Yes Status: Acute Assessment & Plan: -Most likely secondary to UTI/Cellulitis 09/30: -resolved Code(s): D72.829 - ELEVATED WHITE BLOOD CELL COUNT, UNSPECIFIED (9) Tachycardia Current Visit: Yes Status: Acute Assessment & Plan: -EKG with sinus tach -Most likely secondary to infection/hypovolemia - IVF VTE: Eliquis PPI: Protonix Dispo: 2-3 days Code status: SCO (2) UTI (urinary tract infection) Current Visit: Yes Status: Acute Code(s): N39.0 - URINARY TRACT INFECTION, SITE NOT SPECIFIED (3) Lower extremity cellulitis Current Visit: Yes Status: Acute (4) Hypokalemia Current Visit: Yes Status: Acute Code(s): E87.6 - HYPOKALEMIA (5) High anion gap metabolic acidosis Current Visit: Yes Status: Acute Code(s): E87.29 - OTHER ACIDOSIS (6) Spina bifida Current Visit: Yes Status: Acute Code(s): Q05.9 - SPINA BIFIDA, UNSPECIFIED (7) Generalized weakness Current Visit: Yes Status: Acute Code(s): R53.1 - WEAKNESS (8) Leukocytosis Current Visit: Yes Status: Acute Code(s): D72.829 - ELEVATED WHITE BLOOD CELL COUNT, UNSPECIFIED (9) Tachycardia Current Visit: Yes Status: Acute Code(s): R00.0 - TACHYCARDIA, UNSPECIFIED
[2023-10-02] MEDS: Klor Con PO SCH (06:20)
--- NOTE | 2023-10-02 08:34 | XRAY ---
Indication: Central line placement. Comparison: Taken earlier in the day Portable chest demonstrates new right jugular central venous access catheter with tip projecting over atriocaval junction. No pneumothorax. Remaining heart and lungs unremarkable again with incidental left ventricular shunt catheter traversing chest.
[2023-10-02] MEDS: SODIUM BICARBONATE PO SCH (09:24)
[2023-10-02 10:08] LABS: Hematocrit 25.8 % (34.1-44.9); Hemoglobin 8.3 g/dL (11.2-15.7); Mean Cell Volume 95.2 fL (79.4-94.8); Mean Corpuscular Hemoglobin 30.6 pg (25.6-32.2); Mean Corpuscular Hgb Concent. 32.2 g/dL (32.2-35.5); Mean Platelet Volume 8.8 fL (9.4-12.3); Platelet Count 269 x10^3/uL (182-369); Red Blood Count 2.71 x10^6/uL (3.93-5.22); Red Cell Distribution Width 18.3 % (11.7-14.4); White Blood Count 7.2 x10^3/uL (3.98-10.04)
[2023-10-02 10:21] LABS: ALBUMIN 2.3 g/dL (3.5-5.0); ANION GAP 9.6 MEQ/L (5-15); BILIRUBIN,TOTAL 0.9 mg/dL (0.2-1.3); Calcium 7.2 mg/dL (8.4-10.2); Creatinine 1 0.41 mg/dL (0.52-1.04); EST GLOMERULAR FILTRATION RATE 118.3 ML/MIN; Potassium 4.1 mmol/L (3.5-5.1); Total Protein 4.9 g/dL (6.3-8.2)
[2023-10-02] MEDS: TROUGH DRUG LEVELS IJ ONE (10:29)
[2023-10-02 11:41] LABS: IFOB TEST RESULTS NEGATIVE (NEGATIVE)
[2023-10-02 16:35] LABS: 027 TOX PROD PRESUMPTIVE NEGATIVE (NEGATIVE); TOXIGENIC C. DIFF ORG NEGATIVE (NEGATIVE)
[2023-10-02] MEDS: VANCOCIN 500 MG VIAL*** 500 MG in Sodium Chloride 100ML MINI-BAG PLUS 100 ML IV SCH (17:00)
[2023-10-02] MEDS: Sodium Chloride 0.9% 10 ML FLUSH Syringe IJ SCH (17:00)
[2023-10-02] MEDS: IMODIUM 2 MG PO PRN (17:11)
[2023-10-02 18:32] LABS: Hematocrit 25.8 % (34.1-44.9); Hemoglobin 8.1 g/dL (11.2-15.7)
[2023-10-03 05:07] LABS: Absolute Neutrophil Ct (ANC) 4.48 x10^3/uL (1.56-6.13); BASOPHIL % 0.6 % (0.1-1.2); Basophil (Absolute #) 0.04 x10^3/uL (0.01-0.08); Eosinophil % 2.8 % (0.7-5.8); Hematocrit 24.6 % (34.1-44.9); Hemoglobin 7.5 g/dL (11.2-15.7); IMMATURE GRAN # 0.19 x10^3u/L (0.001-0.031); IMMATURE GRAN % 2.6 % (0.001-0.429); Lymphocytes % 26.3 % (19.3-51.7); Mean Cell Volume 99.2 fL (79.4-94.8); Mean Corpuscular Hemoglobin 30.2 pg (25.6-32.2); Mean Corpuscular Hgb Concent. 30.5 g/dL (32.2-35.5); Mean Platelet Volume 9.4 fL (9.4-12.3); Monocyte (Absolute #) 0.41 x10^3/uL (0.24-0.86); Monocytes % 5.7 % (4.7-12.5); NUCLEATED RBC # 0.02 x10^3u/L (0.00-0.012); NUCLEATED RBC % 0.3 % (0.00-0.2); Platelet Count 285 x10^3/uL (182-369); Red Blood Count 2.48 x10^6/uL (3.93-5.22); Red Cell Distribution Width 18.5 % (11.7-14.4); White Blood Count 7.2 x10^3/uL (3.98-10.04)
--- NOTE | 2023-10-03 05:15 | PCM.NOTE ---
Date and Time: 10/03/23 0515 Subjective Assessment: is a 53 year old female with a pmhx of spina bifida, paraplegic insensate from her waist down, suprapubic cath,and hydrocephalus who presented to ED 09/30/23 with complaints of weakness, nausea, poor appetite, subjective fevers, fatigue, and foul-smelling urine that started approximately four days ago. She also endorses BLE edema with multiple wounds in various stages of healing. Patient reports that the she believes her wounds are secondary to a cockroach infestation at her residence. Patient with stoma and normally does self cath but currently has suprapubic cath due to weakness. Denies cough, sob, cp, abdominal pain, ZEE, dizziness, N/V/D. Septic on presentation. Venous doppler positive for Nonoccluding DVT left leg. Right leg negative for DVT. Therapeutic lovenox started with Eliquis to follow in 24 hours at 10mg bid x 7 days, then 5mg bid there after. Labs remarkable for leukocytosis, hypokalemia, carbon dioxide at 8, elevated procal, and UA suspicious for infection. Blood/urine/ wound cultures pending. Patient started on vancomycin/zosyn for the treatment of cellulitis and UTI. Central line placed 10/02/23. 10/01/23: Met with patient bedside. Endorses improvement in weakness overnight.Appetite has improved also. Discussed doppler findings of DVT. Will transition to oral Eliquis and have CM check cost. Potassium now wnl. Patient remains in acidosis but improved with bicarb drip. Urine culture with gram - ID, wound and blood cultures pending. WBC now WNL. Will continue Vanc/Zosyn and follow wound/urine cultures. 10/02/23: Patient feeling much better today. Appetite and energy level continue to increase. Acidosis resolved. Urine culture with ECOLI. Blood and wound cultures pending. Plan to continue Vanc and zosyn pending final results of cultures. Patient deciding on placement. Central line placed yesterday. Will have PT look at BLE for wound therapy. Denies fever,cough, sob, cp, abdominal pain, ZEE, dizziness, N/V/D. 10/03/23: No overnight events noted. Patient continues to endorse improvement. Labs improving. LLE with increased edema this morning, nursing to elevated BLE on pillows. Wound and blood cultures pending. Continue on vanc/zosyn for now. SNF has been approved when pt is medically stable. - Review of Systems Constitutional: No Symptoms Eyes: No Symptoms Ears, Nose, & Throat: No Symptoms Respiratory: No Symptoms Cardiac: Edema (BLE L>R 2+ pitting) Abdominal/Gastrointestinal: No Symptoms Genitourinary Symptoms: No Symptoms Musculoskeletal: No Symptoms Skin: Cellulitis, Skin Lesions Neurological: Paralysis Psychological: No Symptoms Endocrine: No Symptoms Hematologic/Lymphatic: No Symptoms Immunological/Allergic: No Symptoms Objective Exam General Appearance: no apparent distress Neurologic Exam: alert, oriented x 3, cooperative Skin Exam: other (BLE with multiple open wounds in various stages of healing/discharge/erythema) Wound Assessment: Skin/Wound Assessment Wound/Incision Assessment Start: 09/30/23 15:39 Text: Status: Active Freq: Q6H Protocol: Document 10/03/23 02:00 LB (Rec: 10/03/23 02:24 LB [id number]) Wound/Incision Assessment Buttock Wound Assessment Shift Assessment Wound Type INCONTINENT DERMATITIS Wound Stage Non Pressure Wound Drainage Amount None Comment BARRIER CREAM APPLIED PRN BLE Wound Assessment Shift Assessment Wound Type CELLULITIS/ABRASIONS/BITES Wound Stage Non Pressure Wound Drainage Amount Minimal Drainage Description Serous General Appearance Open to air Surrounding Tissue [place] Comment BARRIER CREAM APPLIED PRN Wound Photo Photo Taken Yes Eye Exam: PERRL Ears, Nose, Throat Exam: normal ENT inspection Neck Exam: normal inspection Respiratory Exam: normal breath sounds, lungs clear Cardiovascular Exam: regular rate/rhythm, normal heart sounds Gastrointestinal/Abdomen Exam: normal bowel sounds Extremity Exam: inflammation (BLE L>R 2+) Back Exam: normal inspection Pelvic Exam: deferred Rectal Exam: deferred Objective Data Vital Signs: Vital Signs - 24 hr Temp Pulse Resp BP Pulse Ox 10/02/23 23:15 98.3 F 105 H 17 113/67 95 10/02/23 20:00 97.1 F 97 H 16 90/60 97 10/02/23 16:00 99.0 F 100 H 16 101/59 94 L 10/02/23 15:00 124 H 10/02/23 12:00 98.3 F 106 H 16 91/59 93 L 10/02/23 07:10 97.5 F 113 H 16 90/56 96 Pain Assessment - Last Documented Pain Intensity 0 Intake and Output: Intake & Output 09/30/23 10/01/23 10/02/23 10/03/23 11:59 11:59 11:59 11:59 Intake Total 2150 3252 600 Output Total 793 610 4059 225 Balance -100 1500 1952 375 Weight 54.431 kg 43.7 kg 43.7 kg Lab Results: Lab Results-Last 24 Hours 09/30/23 10/02/23 10/02/23 Range/Units 18:22 04:30 04:30 WBC 6.6 (3.98-10.04) x10^3/uL RBC 2.43 L (3.93-5.22) x10^6/uL Hgb 7.3 L (11.2-15.7) g/dL Hct 22.9 L (34.1-44.9) % MCV 94.2 (79.4-94.8) fL MCH 30.0 (25.6-32.2) pg MCHC 31.9 L (32.2-35.5) g/dL RDW 18.1 H (11.7-14.4) % Plt Count 257 (182-369) x10^3/uL MPV 9.4 (9.4-12.3) fL Gran % 55.4 (34.0-71.1) % Immature Gran % (Auto) 2.4 H (0.001-0.429) % Nucleat RBC Rel Count 0.0 (0.00-0.2) % Eos # (Auto) 0.17 (0.04-0.36) x10^3/uL Immature Gran # (Auto) 0.16 H (0.001-0.031) x10^3u/L Absolute Lymphs (auto) 2.17 (1.18-3.74) x10^3/uL Absolute Monos (auto) 0.42 (0.24-0.86) x10^3/uL Absolute Nucleated RBC 0.00 (0.00-0.012) x10^3u/L Lymphocytes % 32.7 (19.3-51.7) % Monocytes % 6.3 (4.7-12.5) % Eosinophils % 2.6 (0.7-5.8) % Basophils % 0.6 (0.1-1.2) % Absolute Granulocytes 3.68 (1.56-6.13) x10^3/uL Basophils # 0.04 (0.01-0.08) x10^3/uL Sodium 138 (135-145) mmol/L Potassium 3.0 L* (3.5-5.1) mmol/L Chloride 112 H (98-107) mmol/L Carbon Dioxide 22 (22-30) mmol/L Anion Gap 7.3 (5-15) MEQ/L BUN 16 (7-17) mg/dL Creatinine 0.36 L (0.52-1.04) mg/dL Estimated GFR 122.1 ML/MIN Glucose 114 H (74-106) mg/dL Calcium 6.7 L (8.4-10.2) mg/dL Total Bilirubin 0.70 (0.2-1.3) mg/dL AST 18 (14-36) U/L ALT 16 (0-35) U/L Alkaline Phosphatase 75 (38-126) U/L C-Reactive Prot, Quant 138 H (0-10) mg/L Serum Total Protein 4.4 L (6.3-8.2) g/dL Albumin 2.0 L (3.5-5.0) g/dL Stl Occult Blood (IFOB) (NEGATIVE) Vancomycin Trough (10-20) ug/mL C. difficile Screen (NEGATIVE) C.difficile 027-NAP1-B1 (NEGATIVE) 10/02/23 10/02/23 10/02/23 Range/Units 09:45 10:00 10:08 WBC 7.2 (3.98-10.04) x10^3/uL RBC 2.71 L (3.93-5.22) x10^6/uL Hgb 8.3 L (11.2-15.7) g/dL Hct 25.8 L (34.1-44.9) % MCV 95.2 H (79.4-94.8) fL MCH 30.6 (25.6-32.2) pg MCHC 32.2 (32.2-35.5) g/dL RDW 18.3 H (11.7-14.4) % Plt Count 269 (182-369) x10^3/uL MPV 8.8 L (9.4-12.3) fL Gran % (34.0-71.1) % Immature Gran % (Auto) (0.001-0.429) % Nucleat RBC Rel Count (0.00-0.2) % Eos # (Auto) (0.04-0.36) x10^3/uL Immature Gran # (Auto) (0.001-0.031) x10^3u/L Absolute Lymphs (auto) (1.18-3.74) x10^3/uL Absolute Monos (auto) (0.24-0.86) x10^3/uL Absolute Nucleated RBC (0.00-0.012) x10^3u/L Lymphocytes % (19.3-51.7) % Monocytes % (4.7-12.5) % Eosinophils % (0.7-5.8) % Basophils % (0.1-1.2) % Absolute Granulocytes (1.56-6.13) x10^3/uL Basophils # (0.01-0.08) x10^3/uL Sodium 141 (135-145) mmol/L Potassium 4.1 D (3.5-5.1) mmol/L Chloride 113 H (98-107) mmol/L Carbon Dioxide 23 (22-30) mmol/L Anion Gap 9.6 (5-15) MEQ/L BUN 11 (7-17) mg/dL Creatinine 0.41 L (0.52-1.04) mg/dL Estimated GFR 118.3 ML/MIN Glucose 114 H (74-106) mg/dL Calcium 7.2 L (8.4-10.2) mg/dL Total Bilirubin 0.90 (0.2-1.3) mg/dL AST 22 (14-36) U/L ALT 23 (0-35) U/L Alkaline Phosphatase 86 (38-126) U/L C-Reactive Prot, Quant (0-10) mg/L Serum Total Protein 4.9 L (6.3-8.2) g/dL Albumin 2.3 L (3.5-5.0) g/dL Stl Occult Blood (IFOB) (NEGATIVE) Vancomycin Trough 8.92 L (10-20) ug/mL C. difficile Screen (NEGATIVE) C.difficile 027-NAP1-B1 (NEGATIVE) 08/10/02/23 10/02/23 Range/Units 11:30 16:00 18:28 WBC (3.98-10.04) x10^3/uL RBC (3.93-5.22) x10^6/uL Hgb 8.1 L (11.2-15.7) g/dL Hct 25.8 L (34.1-44.9) % MCV (79.4-94.8) fL MCH (25.6-32.2) pg MCHC (32.2-35.5) g/dL RDW (11.7-14.4) % Plt Count (182-369) x10^3/uL MPV (9.4-12.3) fL Gran % (34.0-71.1) % Immature Gran % (Auto) (0.001-0.429) % Nucleat RBC Rel Count (0.00-0.2) % Eos # (Auto) (0.04-0.36) x10^3/uL Immature Gran # (Auto) (0.001-0.031) x10^3u/L Absolute Lymphs (auto) (1.18-3.74) x10^3/uL Absolute Monos (auto) (0.24-0.86) x10^3/uL Absolute Nucleated RBC (0.00-0.012) x10^3u/L Lymphocytes % (19.3-51.7) % Monocytes % (4.7-12.5) % Eosinophils % (0.7-5.8) % Basophils % (0.1-1.2) % Absolute Granulocytes (1.56-6.13) x10^3/uL Basophils # (0.01-0.08) x10^3/uL Sodium (135-145) mmol/L Potassium (3.5-5.1) mmol/L Chloride (98-107) mmol/L Carbon Dioxide (22-30) mmol/L Anion Gap (5-15) MEQ/L BUN (7-17) mg/dL Creatinine (0.52-1.04) mg/dL Estimated GFR ML/MIN Glucose (74-106) mg/dL Calcium (8.4-10.2) mg/dL Total Bilirubin (0.2-1.3) mg/dL AST (14-36) U/L ALT (0-35) U/L Alkaline Phosphatase (38-126) U/L C-Reactive Prot, Quant (0-10) mg/L Serum Total Protein (6.3-8.2) g/dL Albumin (3.5-5.0) g/dL Stl Occult Blood (IFOB) NEGATIVE (NEGATIVE) Vancomycin Trough (10-20) ug/mL C. difficile Screen NEGATIVE (NEGATIVE) C.difficile 027-NAP1-B1 PRESUMPTIVE NEGATIVE (NEGATIVE) Radiology Exams: Radiology Procedures Category Date Time Status CHEST 1 VIEW (PORTABLE) Stat Exams 10/01/23 17:05 Completed CHEST 1 VIEW (PORTABLE) Urgent Exams 10/01/23 13:04 Completed Multi-Disciplinary Progress Notes: Multi-Disciplinary Progress Notes 10/02/23 11:30 (created 10/02/23 12:50) Case Management Note by Ese Resendez S/W PATIENT- SHE CONTINUES TO PLAN TO GO TO [facility] FOR A SHORT TERM REHAB STAY PRIOR TO RETURNING HOME. ENVIVE READY FOR PATIENT WHEN SHE IS MEDICALLY READY CALLED [facility] 09/29 TO S/W CONSULT[employer]- LM, NO CALL BACK REFERRAL SENT TO [facility] TO SEE IF THEY CAN HELP WITH ROACHES, WILL GIVE REFERRAL TO [facility]. Initialized on 10/02/23 12:50 - END OF NOTE 10/02/23 10:46 Pharmacy Note by Lamont Pereira Vancomycin trough low at 8.92. Will increase to q8h dosing. Initialized on 10/02/23 10:46 - END OF NOTE 10/02/23 08:08 Case Management Note by Ese Resendez PASRR AND LEVEL OF CARE APPROVED- PLACED IN CHART AND FAXED TO [facility] Initialized on 10/02/23 08:08 - END OF NOTE Assessment/Plan (1) Sepsis Current Visit: Yes Status: Acute Assessment & Plan: -multifactoral with UTI/cellulitis -meets criteria with HR at 122, WBC at 13.8, and known source of infection -LA WNL -Vanc/zosyn started in ED, will continue -Lovenox -Blood and urine cultures pending - will follow and adjust abx accordingly 09/30: -Wound cultures pending -Urine culture with gram - ID -WBC now wnl -Continue vanc/zosyn for now- pending wound cultures h/o MRSA 10/01: -no longer meets sepsis criteria -wound and blood cult pending -ucult with ecoli - sensitivity to zosyn - will continue vanc/zosyn for now pending wound cultures (2) UTI (urinary tract infection) Current Visit: Yes Status: Acute Assessment & Plan: -UA suspicious for UTI, Culture with ecoli -see sepsis Code(s): N39.0 - URINARY TRACT INFECTION, SITE NOT SPECIFIED (3) Lower extremity cellulitis Current Visit: Yes Status: Acute Assessment & Plan: -BLE with multiple lesions -wound culture -pending -gabriel borders -elevated BLE -venous doppler BLE -Nonoccluding DVT left leg. Right leg negative for DVT. -H/o of MRSA -vanc/zosyn (4) Hypokalemia Current Visit: Yes Status: Acute Assessment & Plan: -Received 40meq po in ED with 40meq ordered IV - -TELE -Recheck according to protocol 10/01/23: -resolved 10/02/23: -potassium at 3.0 this morning - replenished, now at 4.1 - continue to monitor 10/02: -resolved Code(s): E87.6 - HYPOKALEMIA (5) High anion gap metabolic acidosis Current Visit: Yes Status: Acute Assessment & Plan: -beta hydroxybutyric acid level, salicylate level -bicarb drip- improving -BMP q4h 10/01: -resolved -dc bicarb gtt - oral bicarb 650mg bid - continue to monitor 10/02: -D/C oral bicarb - continue to monitor Code(s): E87.29 - OTHER ACIDOSIS (6) Spina bifida Current Visit: Yes Status: Acute Assessment & Plan: -noted, adds complexity Code(s): Q05.9 - SPINA BIFIDA, UNSPECIFIED (7) Generalized weakness Current Visit: Yes Status: Acute Assessment & Plan: -PT/OT -Most likely secondary to acidosis -improving 10/01: -improving Code(s): R53.1 - WEAKNESS (8) Leukocytosis Current Visit: Yes Status: Acute Assessment & Plan: -Most likely secondary to UTI/Cellulitis 09/30: -resolved Code(s): D72.829 - ELEVATED WHITE BLOOD CELL COUNT, UNSPECIFIED (9) Tachycardia Current Visit: Yes Status: Acute Assessment & Plan: -EKG with sinus tach -Most likely secondary to infection/hypovolemia - IVF 10/02: -resolved Anemia -appears chronic -iron labs unremarkable -occult stools negative -continue to monitor if <7 - replenish VTE: Eliquis PPI: Protonix Dispo: 2-3 days Code status: SCO (2) UTI (urinary tract infection) Current Visit: Yes Status: Acute Code(s): N39.0 - URINARY TRACT INFECTION, SITE NOT SPECIFIED (3) Lower extremity cellulitis Current Visit: Yes Status: Acute (4) Hypokalemia Current Visit: Yes Status: Acute Code(s): E87.6 - HYPOKALEMIA (5) High anion gap metabolic acidosis Current Visit: Yes Status: Acute Code(s): E87.29 - OTHER ACIDOSIS (6) Spina bifida Current Visit: Yes Status: Acute Code(s): Q05.9 - SPINA BIFIDA, UNSPECIFIED (7) Generalized weakness Current Visit: Yes Status: Acute Code(s): R53.1 - WEAKNESS (8) Leukocytosis Current Visit: Yes Status: Acute Code(s): D72.829 - ELEVATED WHITE BLOOD CELL COUNT, UNSPECIFIED (9) Tachycardia Current Visit: Yes Status: Acute Code(s): R00.0 - TACHYCARDIA, UNSPECIFIED (10) Anemia Current Visit: Yes Status: Acute Code(s): D64.9 - ANEMIA, UNSPECIFIED
[2023-10-03 05:32] LABS: BILIRUBIN,TOTAL 0.4 mg/dL (0.2-1.3); Calcium 7.5 mg/dL (8.4-10.2); Creatinine 1 0.4 mg/dL (0.52-1.04); Potassium 3.8 mmol/L (3.5-5.1); Total Protein 4.4 g/dL (6.3-8.2)
[2023-10-03] MEDS: TROUGH DRUG LEVELS IJ ONE (11:04)
[2023-10-03 16:42] LABS: Hematocrit 26.3 % (34.1-44.9); Hemoglobin 8.1 g/dL (11.2-15.7)
[2023-10-03 17:21] LABS: Appearance Turbid (Clear); Bacteria None Seen /HPF (None Seen); Bilirubin Negative (Negative); Blood Large (Negative); Epithelial Cells None Seen /HPF (None Seen); Glucose, Urine Negative (Negative); Ketones Negative (Negative); Leukocyte Esterase Moderate (Negative); Nitrite Negative (Negative); Protein,Urine Dip 100 (Negative); RBC >100 /HPF (0-5); Urobilinogen 0.2 mg/dL (0.2); WBC 51-100 /HPF (0-5)
[2023-10-03 17:22] LABS: ADD URINE CULTURE? ORDERED SEPARATELY (NO)
--- NOTE | 2023-10-03 18:39 | XRAY ---
CLINICAL HISTORY: abdominal pain COMPARISON: none TECHNIQUE: CT scan of the abdomen and pelvis was performed with IV contrast. Delayed images were obtained. Coronal and sagittal reconstructive images were also obtained. One of the following dose-reduction techniques was utilized for this exam. Automated exposure control, adjustment of the mA and/or kV according to patient size, and use of iterative reconstruction. CTDI: 8mGy; DLP 363.95mGy-cm FINDINGS: A scan through the lower chest reveals minimal left pleural effusion. Abdomen: The liver is of average size. Multiple non-enhancing simple cysts are seen in both libver lobes the largest at segment II measures 3x 4 cm. The portal vein, intrahepatic biliary radicals and the bile ducts are normal. The spleen, pancreas, and adrenal glands are unremarkable. The kidneys are unremarkable. They are normal in size and shape. No calculi or hydronephrosis. The gallbladder is contracted over a stone measures 7 mm. There is no evidence of wall thickening/ pericholecystic collection. The ascending colon and proximal transverse colon are not visualized with metallic sutures seen in the transverse colon, suggesting right hemicolectomy, for correlation with patient operative details. Submucosal edema was seen in the jejunal loops in the left lumber region, suggesting an inflammatory process. The descending colon, visualized small bowel loops are unremarkable. There is no evidence of significant enlargement of the mesenteric or retroperitoneal lymph nodes. Atherosclerotic calcification is noted in the aorta and iliac arteries. Pelvis: Left iliac fossa colostomy with small bowel loops seen patting through it. The urinary bladder is not visualized. A Marginally enhancing loop with a stratified wall is seen in the right iliac fossa region extending to the anatomical site of the urinary bladder with gas pockets inside and contrast seen within on delayed images it measures 7.5x 12.5 cm. The tip of the tube seen within it. Stranding of the surrounding fat is noted. Possible ilial loop conduit for correlation with patient operative details. Submucosal edema around the rectum is noted. The uterus is unremarkable. Left adnexal cysts measuring 5x 3 cm is noted. No evidence of pelvic lymphadenopathy. Mild pelvic free fluid noted Subcutaneous edema of the abdominal wall is noted with possible subcutaneous collection measures 2.2x 7.8 cm seen in the left iliac fossa region. Spine degenerative and spondylotic changes. No lytic or sclerotic bone lesions. Bifid posterior right 8th rib with cortical irregularities, possible old fracture. Thoraco-lumber fusion with internal fixation noted. No contrast opacification was noted in the left external iliac and common femoral vein, which could be due to early imaging after contrast injection however there is subcutaneous edema noted in the left thigh. Doppler study is recommended to exclude Deep venous thrombosis, IMPRESSION: 1. The urinary bladder is not visualized with a marginally enhancing loop with a stratified wall seen in the right iliac fossa region extending to the anatomical site of the urinary bladder with gas pockets inside and contrast seen within on delayed images. The tip of the tube seen within it. Stranding of the surrounding fat is noted. Possible ilial loop conduit for correlation with patient operative details. 2. The ascending colon and proximal transverse colon are not visualized suggesting right hemicolectomy, for correlation with patient operative details. 3. Subcutaneous edema of the abdominal wall is noted with possible subcutaneous collection measures 2.2x 7.8 cm seen in the left iliac fossa region. 4. No contrast opacification noted in the left external iliac and common femoral vein, could be due to early imaging after contrast injection however there is subcutaneous edema noted in the left thigh. Doppler study is recommended to exclude deep venous thrombosis, 5. Submucosal edema seen in the jejunal loops in the left lumber region, suggesting an inflammatory process. Clinical correlation is advised 6. Left adnexal cysts measuring 5x 3 cm is noted. US is recommended for better evaluation 7. Minimal left pleural effusion. 8. Bilobar hepatic simple cysts 9. Cholithesiasis. Electronically Signed by: Massiel Saldana MD. (10/03/2023 18:34:27 EDT)
[2023-10-04 05:50] LABS: Absolute Neutrophil Ct (ANC) 3.27 x10^3/uL (1.56-6.13); BASOPHIL % 0.5 % (0.1-1.2); Basophil (Absolute #) 0.03 x10^3/uL (0.01-0.08); Eosinophil (Absolute #) 0.22 x10^3/uL (0.04-0.36); Hematocrit 22.3 % (34.1-44.9); IMMATURE GRAN # 0.22 x10^3u/L (0.001-0.031); Lymphocyte (Absolute #) 1.37 x10^3/uL (1.18-3.74); Lymphocytes % 24.8 % (19.3-51.7); Mean Cell Volume 101.8 fL (79.4-94.8); Mean Corpuscular Hemoglobin 31.1 pg (25.6-32.2); Mean Corpuscular Hgb Concent. 30.5 g/dL (32.2-35.5); Mean Platelet Volume 8.9 fL (9.4-12.3); Monocyte (Absolute #) 0.42 x10^3/uL (0.24-0.86); Monocytes % 7.6 % (4.7-12.5); NUCLEATED RBC # 0.02 x10^3u/L (0.00-0.012); NUCLEATED RBC % 0.4 % (0.00-0.2); Neutrophil % 59.1 % (34.0-71.1); Platelet Count 280 x10^3/uL (182-369); Red Blood Count 2.19 x10^6/uL (3.93-5.22); Red Cell Distribution Width 18.2 % (11.7-14.4); White Blood Count 5.5 x10^3/uL (3.98-10.04)
[2023-10-04 06:06] LABS: ALBUMIN 1.9 g/dL (3.5-5.0); ANION GAP 5.6 MEQ/L (5-15); BILIRUBIN,TOTAL 0.2 mg/dL (0.2-1.3); Calcium 7.7 mg/dL (8.4-10.2); Creatinine 1 0.37 mg/dL (0.52-1.04); EST GLOMERULAR FILTRATION RATE 121.3 ML/MIN; Potassium 3.7 mmol/L (3.5-5.1); Total Protein 4.3 g/dL (6.3-8.2)
[2023-10-04 06:30] LABS: Hemoglobin 6.8 g/dL (11.2-15.7)
--- NOTE | 2023-10-04 08:21 | PCM.NOTE ---
Date and Time: 10/04/23815 Subjective Assessment: is a 53 year old female with a pmhx of spina bifida, paraplegic insensate from her waist down, suprapubic cath,and hydrocephalus who presented to ED 09/30/23 with complaints of weakness, nausea, poor appetite, subjective fevers, fatigue, and foul-smelling urine that started approximately four days ago. She also endorses BLE edema with multiple wounds in various stages of healing. Patient reports that the she believes her wounds are secondary to a cockroach infestation at her residence. Patient with stoma and normally does self cath but currently has suprapubic cath due to weakness. Denies cough, sob, cp, abdominal pain, ZEE, dizziness, N/V/D. Septic on presentation. Venous doppler positive for Nonoccluding DVT left leg. Right leg negative for DVT. Therapeutic lovenox started with Eliquis to follow in 24 hours at 10mg bid x 7 days, then 5mg bid there after. Labs remarkable for leukocytosis, hypokalemia, carbon dioxide at 8, elevated procal, and UA suspicious for infection. Blood/urine/ wound cultures pending. Patient started on vancomycin/zosyn for the treatment of cellulitis and UTI. Central line placed 10/02/23. 10/01/23: Met with patient bedside. Endorses improvement in weakness overnight.Appetite has improved also. Discussed doppler findings of DVT. Will transition to oral Eliquis and have CM check cost. Potassium now wnl. Patient remains in acidosis but improved with bicarb drip. Urine culture with gram - ID, wound and blood cultures pending. WBC now WNL. Will continue Vanc/Zosyn and follow wound/urine cultures. 10/02/23: Patient feeling much better today. Appetite and energy level continue to increase. Acidosis resolved. Urine culture with ECOLI. Blood and wound cultures pending. Plan to continue Vanc and zosyn pending final results of cultures. Patient deciding on placement. Central line placed yesterday. Will have PT look at BLE for wound therapy. Denies fever,cough, sob, cp, abdominal pain, ZEE, dizziness, N/V/D. 10/03/23: No overnight events noted. Patient continues to endorse improvement. Labs improving. LLE with increased edema this morning, nursing to elevated BLE on pillows. Wound and blood cultures pending. Continue on vanc/zosyn for now. SNF has been approved when pt is medically stable. 10/04/23: Met with patient bedside. Patient states she is feeling good. No longer weak. BLE edema is improving. Wound cultures pending. RN reported 10/03/23 small blood clots when aspirating/flushing catheter. CT of abd/pelvis with no acute findings. Hgb at 6.8 this morning and will be receiving a unit of blood. Plan to d/c cath if supplies are available for self-cath. - Review of Systems Constitutional: No Symptoms Eyes: No Symptoms Ears, Nose, & Throat: No Symptoms Respiratory: No Symptoms Cardiac: Edema (BLE) Abdominal/Gastrointestinal: No Symptoms Genitourinary Symptoms: No Symptoms Musculoskeletal: No Symptoms Skin: Cellulitis, Skin Lesions Neurological: Paralysis Psychological: No Symptoms Endocrine: No Symptoms Hematologic/Lymphatic: Anemia, Blood Clots (in FC 10/03/23) Immunological/Allergic: No Symptoms Objective Exam General Appearance: no apparent distress, anxiety Neurologic Exam: alert, cooperative Skin Exam: other (see wound assessment) Wound Assessment: Skin/Wound Assessment Wound/Incision Assessment Start: 09/30/23 15:39 Text: Status: Active Freq: Q6H Protocol: Document 10/04/23 08:00 AR (Rec: 10/04/23 08:09 AR [id number]) Wound/Incision Assessment Buttock Wound Assessment Shift Assessment Wound Type incontinent dermatitis/ shearing Wound Stage Non Pressure Wound Drainage Amount None General Appearance Open to air Comment barrier cream applied BLE Wound Assessment Shift Assessment Wound Type CELLULITIS/ABRASIONS/BITES Wound Stage Non Pressure Wound Drainage Amount Moderate Drainage Description Serous General Appearance Open to air,Draining Surrounding Tissue [place],Edematous Comment BARRIER CREAM APPLIED PRN- remains true Wound Photo Photo Taken Yes Eye Exam: PERRL Ears, Nose, Throat Exam: normal ENT inspection Neck Exam: normal inspection Respiratory Exam: normal breath sounds, lungs clear Cardiovascular Exam: regular rate/rhythm, normal heart sounds Gastrointestinal/Abdomen Exam: soft, normal bowel sounds Extremity Exam: swelling (BLE L>R 2+/1+ pitting with multiple open wounds with drainage and surrounding erythema) Back Exam: normal inspection Pelvic Exam: deferred Rectal Exam: deferred Objective Data Vital Signs: Vital Signs - 24 hr Temp Pulse Resp BP BP Pulse Ox 08/24/24 07:20 86 10 L 102/67 95 10/04/23 05:00 98.3 F 109 H 13 99/64 95 10/04/23 01:00 98.7 F 105 H 15 104/64 99 10/03/23 21:00 97.8 F 106 H 13 91/55 97 10/03/23 17:57 97.6 F 124 H 18 105/64 95 10/03/23 15:37 114 H 10/03/23 12:00 98.5 F 72 18 100/98 99 Pain Assessment - Last Documented Pain Intensity 0 Intake and Output: Intake & Output 10/01/23 10/02/23 10/03/23 10/04/23 11:59 11:59 11:59 11:59 Intake Total 2150 3252 840 2715 Output Total 650 1300 950 997 Balance 1500 1952 -110 1718 Weight 43.7 kg 43.7 kg Lab Results: Lab Results-Last 24 Hours 10/03/23 10/03/23 10/03/23 Range/Units 10:00 16:10 16:35 WBC (3.98-10.04) x10^3/uL RBC (3.93-5.22) x10^6/uL Hgb 8.1 L (11.2-15.7) g/dL Hct 26.3 L (34.1-44.9) % MCV (79.4-94.8) fL MCH (25.6-32.2) pg MCHC (32.2-35.5) g/dL RDW (11.7-14.4) % Plt Count (182-369) x10^3/uL MPV (9.4-12.3) fL Gran % (34.0-71.1) % Immature Gran % (Auto) (0.001-0.429) % Nucleat RBC Rel Count (0.00-0.2) % Eos # (Auto) (0.04-0.36) x10^3/uL Immature Gran # (Auto) (0.001-0.031) x10^3u/L Absolute Lymphs (auto) (1.18-3.74) x10^3/uL Absolute Monos (auto) (0.24-0.86) x10^3/uL Absolute Nucleated RBC (0.00-0.012) x10^3u/L Lymphocytes % (19.3-51.7) % Monocytes % (4.7-12.5) % Eosinophils % (0.7-5.8) % Basophils % (0.1-1.2) % Absolute Granulocytes (1.56-6.13) x10^3/uL Basophils # (0.01-0.08) x10^3/uL Sodium (135-145) mmol/L Potassium (3.5-5.1) mmol/L Chloride (98-107) mmol/L Carbon Dioxide (22-30) mmol/L Anion Gap (5-15) MEQ/L BUN (7-17) mg/dL Creatinine (0.52-1.04) mg/dL Estimated GFR ML/MIN Glucose (74-106) mg/dL Calcium (8.4-10.2) mg/dL Total Bilirubin (0.2-1.3) mg/dL AST (14-36) U/L ALT (0-35) U/L Alkaline Phosphatase (38-126) U/L Serum Total Protein (6.3-8.2) g/dL Albumin (3.5-5.0) g/dL Urine Color [place] A (Yellow) Urine Appearance Turbid A (Clear) Urine pH 7.0 (4.6-8.0) Ur Specific [place] 1.020 (1.005-1.030) Urine Protein 100 A (Negative) Urine Glucose (UA) Negative (Negative) mg/dL Urine Ketones Negative (Negative) Urine Blood Large A (Negative) Urine Nitrite Negative (Negative) Urine Bilirubin Negative (Negative) Urine Urobilinogen 0.2 (0.2) mg/dL Ur Leukocyte Esterase Moderate A (Negative) U Hyaline Cast (Auto) 6-10 A (0-2) /LPF Urine Microscopic RBC >100 A (0-5) /HPF Urine Microscopic WBC 51-100 A (0-5) /HPF Ur Epithelial Cells None Seen (None Seen) /HPF Urine Bacteria None Seen (None Seen) /HPF Urine Culture Reflexed ORDERED SEPARATELY (NO) Vancomycin Trough 10.85 (10-20) ug/mL 10/04/23 10/04/23 Range/Units 05:45 05:45 WBC 5.5 (3.98-10.04) x10^3/uL RBC 2.19 L (3.93-5.22) x10^6/uL Hgb 6.8 L* (11.2-15.7) g/dL Hct 22.3 L (34.1-44.9) % MCV 101.8 H (79.4-94.8) fL MCH 31.1 (25.6-32.2) pg MCHC 30.5 L (32.2-35.5) g/dL RDW 18.2 H (11.7-14.4) % Plt Count 280 (182-369) x10^3/uL MPV 8.9 L (9.4-12.3) fL Gran % 59.1 (34.0-71.1) % Immature Gran % (Auto) 4.0 H (0.001-0.429) % Nucleat RBC Rel Count 0.4 H (0.00-0.2) % Eos # (Auto) 0.22 (0.04-0.36) x10^3/uL Immature Gran # (Auto) 0.22 H (0.001-0.031) x10^3u/L Absolute Lymphs (auto) 1.37 (1.18-3.74) x10^3/uL Absolute Monos (auto) 0.42 (0.24-0.86) x10^3/uL Absolute Nucleated RBC 0.02 H (0.00-0.012) x10^3u/L Lymphocytes % 24.8 (19.3-51.7) % Monocytes % 7.6 (4.7-12.5) % Eosinophils % 4.0 (0.7-5.8) % Basophils % 0.5 (0.1-1.2) % Absolute Granulocytes 3.27 (1.56-6.13) x10^3/uL Basophils # 0.03 (0.01-0.08) x10^3/uL Sodium 137 (135-145) mmol/L Potassium 3.7 (3.5-5.1) mmol/L Chloride 112 H (98-107) mmol/L Carbon Dioxide 23 (22-30) mmol/L Anion Gap 5.6 (5-15) MEQ/L BUN 7 (7-17) mg/dL Creatinine 0.37 L (0.52-1.04) mg/dL Estimated GFR 121.3 ML/MIN Glucose 90 (74-106) mg/dL Calcium 7.7 L (8.4-10.2) mg/dL Total Bilirubin 0.20 (0.2-1.3) mg/dL AST 21 (14-36) U/L ALT 12 (0-35) U/L Alkaline Phosphatase 78 (38-126) U/L Serum Total Protein 4.3 L (6.3-8.2) g/dL Albumin 1.9 L (3.5-5.0) g/dL Urine Color (Yellow) Urine Appearance (Clear) Urine pH (4.6-8.0) Ur Specific [place] (1.005-1.030) Urine Protein (Negative) Urine Glucose (UA) (Negative) mg/dL Urine Ketones (Negative) Urine Blood (Negative) Urine Nitrite (Negative) Urine Bilirubin (Negative) Urine Urobilinogen (0.2) mg/dL Ur Leukocyte Esterase (Negative) U Hyaline Cast (Auto) (0-2) /LPF Urine Microscopic RBC (0-5) /HPF Urine Microscopic WBC (0-5) /HPF Ur Epithelial Cells (None Seen) /HPF Urine Bacteria (None Seen) /HPF Urine Culture Reflexed (NO) Vancomycin Trough (10-20) ug/mL Radiology Exams: Radiology Procedures Category Date Time Status ABDOMEN AND PELVIS W CONTRAST [CT] Stat Exams 10/03/23 16:00 Completed Multi-Disciplinary Progress Notes: Multi-Disciplinary Progress Notes 10/03/23 12:10 Case Management Note by Ese Resendez S/W PATIENT- SHE CONTINUES TO PLAN TO TRANSITION TO [facility] FOR SHORT TERM REHAB STAY PRIOR TO RETURNING HOME. ENVIVE READY FOR PATIENT AT TIME OF DC. IF PATIENT NEEDS TO DC ON IV ANTIBIOTICS-ENVIVE CANNOT ORDER ANTIBIOTICS UNIL SHE IS IN HOUSE SO THIS NEEDS TO BE CONSIDERED AT TIME OF DC. Initialized on 10/03/23 12:10 - END OF NOTE Assessment/Plan (1) Sepsis Current Visit: Yes Status: Acute Assessment & Plan: -multifactoral with UTI/cellulitis -meets criteria with HR at 122, WBC at 13.8, and known source of infection -LA WNL -Vanc/zosyn started in ED, will continue -Lovenox -Blood and urine cultures pending - will follow and adjust abx accordingly 09/30: -Wound cultures pending -Urine culture with gram - ID -WBC now wnl -Continue vanc/zosyn for now- pending wound cultures h/o MRSA 10/01: -no longer meets sepsis criteria -wound and blood cult pending -ucult with ecoli - sensitivity to zosyn - will continue vanc/zosyn for now pending wound cultures (2) UTI (urinary tract infection) Current Visit: Yes Status: Acute Assessment & Plan: -UA suspicious for UTI, Culture with ecoli -see sepsis Code(s): N39.0 - URINARY TRACT INFECTION, SITE NOT SPECIFIED (3) Lower extremity cellulitis Current Visit: Yes Status: Acute Assessment & Plan: -BLE with multiple lesions -wound culture -pending -gabriel borders -elevated BLE -venous doppler BLE -Nonoccluding DVT left leg. Right leg negative for DVT. -H/o of MRSA -vanc/zosyn 10/03: -Wound cultures still pending- will continue vanc/zosyn - follow culture (4) Hypokalemia Current Visit: Yes Status: Acute Assessment & Plan: -Received 40meq po in ED with 40meq ordered IV - -TELE -Recheck according to protocol 10/01/23: -resolved 10/02/23: -potassium at 3.0 this morning - replenished, now at 4.1 - continue to monitor 10/02: -resolved Code(s): E87.6 - HYPOKALEMIA (5) High anion gap metabolic acidosis Current Visit: Yes Status: Acute Assessment & Plan: -beta hydroxybutyric acid level, salicylate level -bicarb drip- improving -BMP q4h 10/01: -resolved -dc bicarb gtt - oral bicarb 650mg bid - continue to monitor 10/02: -D/C oral bicarb - continue to monitor 10/03: -Resolved Code(s): E87.29 - OTHER ACIDOSIS (6) Spina bifida Current Visit: Yes Status: Acute Assessment & Plan: -noted, adds complexity -Patient self caths - will resume today Code(s): Q05.9 - SPINA BIFIDA, UNSPECIFIED (7) Generalized weakness Current Visit: Yes Status: Acute Assessment & Plan: -PT/OT -Most likely secondary to acidosis -improving 10/01: -improving 10/03: -Patient has been accepted to SNF when medically stable Code(s): R53.1 - WEAKNESS (8) Leukocytosis Current Visit: Yes Status: Acute Assessment & Plan: -Most likely secondary to UTI/Cellulitis 09/30: -resolved Code(s): D72.829 - ELEVATED WHITE BLOOD CELL COUNT, UNSPECIFIED (9) Tachycardia Current Visit: Yes Status: Acute Assessment & Plan: -EKG with sinus tach -Most likely secondary to infection/hypovolemia - IVF 10/02: -resolved Anemia -appears chronic -iron labs unremarkable -occult stools negative -continue to monitor if <7 - replenish 10/03: -Hgb at 6.8 this morning - will replenish DVT -Venous doppler showing Nonoccluding DVT left leg. Right leg negative for DVT -Eliquis started at 10mg po bid x 7 days, then 5mg bid -there after VTE: Eliquis PPI: Protonix Dispo: 2-3 days Code status: SCO (2) UTI (urinary tract infection) Current Visit: Yes Status: Acute Code(s): N39.0 - URINARY TRACT INFECTION, SITE NOT SPECIFIED (3) Lower extremity cellulitis Current Visit: Yes Status: Acute (4) Hypokalemia Current Visit: Yes Status: Acute Code(s): E87.6 - HYPOKALEMIA (5) High anion gap metabolic acidosis Current Visit: Yes Status: Acute Code(s): E87.29 - OTHER ACIDOSIS (6) Spina bifida Current Visit: Yes Status: Acute Code(s): Q05.9 - SPINA BIFIDA, UNSPECIFIED (7) Generalized weakness Current Visit: Yes Status: Acute Code(s): R53.1 - WEAKNESS (8) Leukocytosis Current Visit: Yes Status: Acute Code(s): D72.829 - ELEVATED WHITE BLOOD CELL COUNT, UNSPECIFIED (9) Tachycardia Current Visit: Yes Status: Acute Code(s): R00.0 - TACHYCARDIA, UNSPECIFIED (10) Anemia Current Visit: Yes Status: Acute Code(s): D64.9 - ANEMIA, UNSPECIFIED (11) DVT (deep venous thrombosis) Current Visit: Yes Status: Acute Code(s): I82.409 - ACUTE EMBOLISM AND THOMBOS UNSP DEEP VN UNSP LOWER EXTREMITY
[2023-10-04 08:43] LABS: ABO TYPING O; Antibody Screen NEGATIVE (NEGATIVE); RH TYPING POSITIVE
[2023-10-04 08:46] LABS: CROSS MATCH (PRBC) COMPATIBLE (COMPATIBLE)
[2023-10-04] MEDS: Sodium Chloride 0.9% 500 ML 500 ML IV SCH (12:17)
[2023-10-04 17:11] LABS: Hematocrit 27.4 % (34.1-44.9)
[2023-10-04 17:13] LABS: Hemoglobin 8.6 g/dL (11.2-15.7)
--- NOTE | 2023-10-05 05:07 | PCM.NOTE ---
Date and Time: 10/05/23 0500 Subjective Assessment: is a 53 year old female with a pmhx of spina bifida, paraplegic insensate from her waist down, suprapubic cath,and hydrocephalus who presented to ED 09/30/23 with complaints of weakness, nausea, poor appetite, subjective fevers, fatigue, and foul-smelling urine that started approximately four days ago. She also endorses BLE edema with multiple wounds in various stages of healing. Patient reports that the she believes her wounds are secondary to a cockroach infestation at her residence. Patient with stoma and normally does self cath but currently has suprapubic cath due to weakness. Denies cough, sob, cp, abdominal pain, EZE, dizziness, N/V/D. Septic on presentation. Venous doppler positive for Nonoccluding DVT left leg. Right leg negative for DVT. Therapeutic lovenox started with Eliquis to follow in 24 hours at 10mg bid x 7 days, then 5mg bid there after. Labs remarkable for leukocytosis, hypokalemia, carbon dioxide at 8, elevated procal, and UA suspicious for infection. Blood/urine/ wound cultures pending. Patient started on vancomycin/zosyn for the treatment of cellulitis and UTI. Central line placed 10/02/23. 10/01/23: Met with patient bedside. Endorses improvement in weakness overnight.Appetite has improved also. Discussed doppler findings of DVT. Will transition to oral Eliquis and have CM check cost. Potassium now wnl. Patient remains in acidosis but improved with bicarb drip. Urine culture with gram - ID, wound and blood cultures pending. WBC now WNL. Will continue Vanc/Zosyn and follow wound/urine cultures. 10/02/23: Patient feeling much better today. Appetite and energy level continue to increase. Acidosis resolved. Urine culture with ECOLI. Blood and wound cultures pending. Plan to continue Vanc and zosyn pending final results of cultures. Patient deciding on placement. Central line placed yesterday. Will have PT look at BLE for wound therapy. Denies fever,cough, sob, cp, abdominal pain, ZEE, dizziness, N/V/D. 10/03/23: No overnight events noted. Patient continues to endorse improvement. Labs improving. LLE with increased edema this morning, nursing to elevated BLE on pillows. Wound and blood cultures pending. Continue on vanc/zosyn for now. SNF has been approved when pt is medically stable. Objective Exam Wound Assessment: Skin/Wound Assessment Wound/Incision Assessment Start: 09/30/23 15:39 Text: Status: Active Freq: Q6H Protocol: Document 10/05/23 02:00 KD (Rec: 10/05/23 02:46 KD [id number]) Wound/Incision Assessment Buttock Wound Assessment Shift Assessment Wound Type incontinent dermatitis/ shearing Wound Stage Non Pressure Wound Drainage Amount None General Appearance Open to air Comment barrier cream applied prn BLE Wound Assessment Shift Assessment Wound Type CELLULITIS/ABRASIONS/BITES Wound Stage Non Pressure Wound Drainage Amount Moderate Drainage Description Serous General Appearance Open to air,Draining Surrounding Tissue [place],Edematous Comment barrier cream applied prn - remains true Wound Photo Photo Taken Yes Objective Data Vital Signs: Vital Signs - 24 hr Temp Pulse Resp BP BP Pulse Ox 10/05/23 04:00 97.4 F 103 H 16 95/60 95 10/04/23 23:42 97.4 F 88 16 103/74 96 10/04/23 19:38 97.7 F 103 H 18 106/67 97 10/04/23 16:00 99.1 F 115 H 14 103/71 105/64 97 10/04/23 12:00 98.8 F 106 H 14 89/55 97 10/04/23 07:20 86 10 L 102/67 95 Pain Assessment - Last Documented Pain Intensity 0 Intake and Output: Intake & Output 10/02/23 10/03/23 10/04/23 10/05/23 11:59 11:59 11:59 11:59 Intake Total 3252 840 2765 1980 Output Total 3431 433 3919 1485 Balance 1952 -110 1218 495 Weight 43.7 kg Lab Results: Lab Results-Last 24 Hours 10/04/23 10/04/23 10/04/23 Range/Units 05:45 05:45 07:23 WBC 5.5 (3.98-10.04) x10^3/uL RBC 2.19 L (3.93-5.22) x10^6/uL Hgb 6.8 L* (11.2-15.7) g/dL Hct 22.3 L (34.1-44.9) % MCV 101.8 H (79.4-94.8) fL MCH 31.1 (25.6-32.2) pg MCHC 30.5 L (32.2-35.5) g/dL RDW 18.2 H (11.7-14.4) % Plt Count 280 (182-369) x10^3/uL MPV 8.9 L (9.4-12.3) fL Gran % 59.1 (34.0-71.1) % Immature Gran % (Auto) 4.0 H (0.001-0.429) % Nucleat RBC Rel Count 0.4 H (0.00-0.2) % Eos # (Auto) 0.22 (0.04-0.36) x10^3/uL Immature Gran # (Auto) 0.22 H (0.001-0.031) x10^3u/L Absolute Lymphs (auto) 1.37 (1.18-3.74) x10^3/uL Absolute Monos (auto) 0.42 (0.24-0.86) x10^3/uL Absolute Nucleated RBC 0.02 H (0.00-0.012) x10^3u/L Lymphocytes % 24.8 (19.3-51.7) % Monocytes % 7.6 (4.7-12.5) % Eosinophils % 4.0 (0.7-5.8) % Basophils % 0.5 (0.1-1.2) % Absolute Granulocytes 3.27 (1.56-6.13) x10^3/uL Basophils # 0.03 (0.01-0.08) x10^3/uL Sodium 137 (135-145) mmol/L Potassium 3.7 (3.5-5.1) mmol/L Chloride 112 H (98-107) mmol/L Carbon Dioxide 23 (22-30) mmol/L Anion Gap 5.6 (5-15) MEQ/L BUN 7 (7-17) mg/dL Creatinine 0.37 L (0.52-1.04) mg/dL Estimated GFR 121.3 ML/MIN Glucose 90 (74-106) mg/dL Calcium 7.7 L (8.4-10.2) mg/dL Total Bilirubin 0.20 (0.2-1.3) mg/dL AST 21 (14-36) U/L ALT 12 (0-35) U/L Alkaline Phosphatase 78 (38-126) U/L Serum Total Protein 4.3 L (6.3-8.2) g/dL Albumin 1.9 L (3.5-5.0) g/dL ABO Group O Rh Factor POSITIVE Antibody Screen NEGATIVE (NEGATIVE) Crossmatch COMPATIBLE (COMPATIBLE) 10/04/23 Range/Units 17:05 WBC (3.98-10.04) x10^3/uL RBC (3.93-5.22) x10^6/uL Hgb 8.6 L D (11.2-15.7) g/dL Hct 27.4 L (34.1-44.9) % MCV (79.4-94.8) fL MCH (25.6-32.2) pg MCHC (32.2-35.5) g/dL RDW (11.7-14.4) % Plt Count (182-369) x10^3/uL MPV (9.4-12.3) fL Gran % (34.0-71.1) % Immature Gran % (Auto) (0.001-0.429) % Nucleat RBC Rel Count (0.00-0.2) % Eos # (Auto) (0.04-0.36) x10^3/uL Immature Gran # (Auto) (0.001-0.031) x10^3u/L Absolute Lymphs (auto) (1.18-3.74) x10^3/uL Absolute Monos (auto) (0.24-0.86) x10^3/uL Absolute Nucleated RBC (0.00-0.012) x10^3u/L Lymphocytes % (19.3-51.7) % Monocytes % (4.7-12.5) % Eosinophils % (0.7-5.8) % Basophils % (0.1-1.2) % Absolute Granulocytes (1.56-6.13) x10^3/uL Basophils # (0.01-0.08) x10^3/uL Sodium (135-145) mmol/L Potassium (3.5-5.1) mmol/L Chloride (98-107) mmol/L Carbon Dioxide (22-30) mmol/L Anion Gap (5-15) MEQ/L BUN (7-17) mg/dL Creatinine (0.52-1.04) mg/dL Estimated GFR ML/MIN Glucose (74-106) mg/dL Calcium (8.4-10.2) mg/dL Total Bilirubin (0.2-1.3) mg/dL AST (14-36) U/L ALT (0-35) U/L Alkaline Phosphatase (38-126) U/L Serum Total Protein (6.3-8.2) g/dL Albumin (3.5-5.0) g/dL ABO Group Rh Factor Antibody Screen (NEGATIVE) Crossmatch (COMPATIBLE) Radiology Exams: Radiology Procedures Category Date Time Status ABDOMEN AND PELVIS W CONTRAST [CT] Stat Exams 10/03/23 16:00 Completed Assessment/Plan (1) Sepsis Current Visit: Yes Status: Acute Assessment & Plan: -multifactoral with UTI/cellulitis -meets criteria with HR at 122, WBC at 13.8, and known source of infection -LA WNL -Vanc/zosyn started in ED, will continue -Lovenox -Blood and urine cultures pending - will follow and adjust abx accordingly 09/30: -Wound cultures pending -Urine culture with gram - ID -WBC now wnl -Continue vanc/zosyn for now- pending wound cultures h/o MRSA 10/01: -no longer meets sepsis criteria -wound and blood cult pending -ucult with ecoli - sensitivity to zosyn - will continue vanc/zosyn for now pending wound cultures (2) UTI (urinary tract infection) Current Visit: Yes Status: Acute Assessment & Plan: -UA suspicious for UTI, Culture with ecoli -see sepsis Code(s): N39.0 - URINARY TRACT INFECTION, SITE NOT SPECIFIED (3) Lower extremity cellulitis Current Visit: Yes Status: Acute Assessment & Plan: -BLE with multiple lesions -wound culture -pending -gabriel borders -elevated BLE -venous doppler BLE -Nonoccluding DVT left leg. Right leg negative for DVT. -H/o of MRSA -vanc/zosyn 10/03: -Wound cultures still pending- will continue vanc/zosyn - follow culture (4) Hypokalemia Current Visit: Yes Status: Acute Assessment & Plan: -Received 40meq po in ED with 40meq ordered IV - -TELE -Recheck according to protocol 10/01/23: -resolved 10/02/23: -potassium at 3.0 this morning - replenished, now at 4.1 - continue to monitor 10/02: -resolved Code(s): E87.6 - HYPOKALEMIA (5) High anion gap metabolic acidosis Current Visit: Yes Status: Acute Assessment & Plan: -beta hydroxybutyric acid level, salicylate level -bicarb drip- improving -BMP q4h 10/01: -resolved -dc bicarb gtt - oral bicarb 650mg bid - continue to monitor 10/02: -D/C oral bicarb - continue to monitor 10/03: -Resolved Code(s): E87.29 - OTHER ACIDOSIS (6) Spina bifida Current Visit: Yes Status: Acute Assessment & Plan: -noted, adds complexity -Patient self caths - will resume today Code(s): Q05.9 - SPINA BIFIDA, UNSPECIFIED (7) Generalized weakness Current Visit: Yes Status: Acute Assessment & Plan: -PT/OT -Most likely secondary to acidosis -improving 10/01: -improving 10/03: -Patient has been accepted to SNF when medically stable Code(s): R53.1 - WEAKNESS (8) Leukocytosis Current Visit: Yes Status: Acute Assessment & Plan: -Most likely secondary to UTI/Cellulitis 09/30: -resolved Code(s): D72.829 - ELEVATED WHITE BLOOD CELL COUNT, UNSPECIFIED (9) Tachycardia Current Visit: Yes Status: Acute Assessment & Plan: -EKG with sinus tach -Most likely secondary to infection/hypovolemia - IVF 10/02: -resolved Anemia -appears chronic -iron labs unremarkable -occult stools negative -continue to monitor if <7 - replenish 10/03: -Hgb at 6.8 this morning - will replenish DVT -Venous doppler showing Nonoccluding DVT left leg. Right leg negative for DVT -Eliquis started at 10mg po bid x 7 days, then 5mg bid -there after VTE: Eliquis PPI: Protonix Dispo: 2-3 days Code status: SCO (2) UTI (urinary tract infection) Current Visit: Yes Status: Acute Code(s): N39.0 - URINARY TRACT INFECTION, SITE NOT SPECIFIED (3) Lower extremity cellulitis Current Visit: Yes Status: Acute (4) Hypokalemia Current Visit: Yes Status: Acute Code(s): E87.6 - HYPOKALEMIA (5) High anion gap metabolic acidosis Current Visit: Yes Status: Acute Code(s): E87.29 - OTHER ACIDOSIS (6) Spina bifida Current Visit: Yes Status: Acute Code(s): Q05.9 - SPINA BIFIDA, UNSPECIFIED (7) Generalized weakness Current Visit: Yes Status: Acute Code(s): R53.1 - WEAKNESS (8) Leukocytosis Current Visit: Yes Status: Acute Code(s): D72.829 - ELEVATED WHITE BLOOD CELL COUNT, UNSPECIFIED (9) Tachycardia Current Visit: Yes Status: Acute Code(s): R00.0 - TACHYCARDIA, UNSPECIFIED (10) Anemia Current Visit: Yes Status: Acute Code(s): D64.9 - ANEMIA, UNSPECIFIED (11) DVT (deep venous thrombosis) Current Visit: Yes Status: Acute Code(s): I82.409 - ACUTE EMBOLISM AND THOMBOS UNSP DEEP VN UNSP LOWER EXTREMITY
[2023-10-05 05:31] LABS: Absolute Neutrophil Ct (ANC) 3.56 x10^3/uL (1.56-6.13); BASOPHIL % 0.5 % (0.1-1.2); Basophil (Absolute #) 0.03 x10^3/uL (0.01-0.08); Eosinophil % 4.6 % (0.7-5.8); Eosinophil (Absolute #) 0.28 x10^3/uL (0.04-0.36); Hematocrit 26.6 % (34.1-44.9); Hemoglobin 8.5 g/dL (11.2-15.7); IMMATURE GRAN # 0.15 x10^3u/L (0.001-0.031); IMMATURE GRAN % 2.4 % (0.001-0.429); Lymphocyte (Absolute #) 1.63 x10^3/uL (1.18-3.74); Lymphocytes % 26.6 % (19.3-51.7); Mean Platelet Volume 8.9 fL (9.4-12.3); Monocyte (Absolute #) 0.48 x10^3/uL (0.24-0.86); Monocytes % 7.8 % (4.7-12.5); Neutrophil % 58.1 % (34.0-71.1); Platelet Count 308 x10^3/uL (182-369); Red Blood Count 2.83 x10^6/uL (3.93-5.22); Red Cell Distribution Width 20.7 % (11.7-14.4); White Blood Count 6.1 x10^3/uL (3.98-10.04)
[2023-10-05 05:53] LABS: ANION GAP 3.6 MEQ/L (5-15); BILIRUBIN,TOTAL 0.3 mg/dL (0.2-1.3); Calcium 7.5 mg/dL (8.4-10.2); Creatinine 1 0.31 mg/dL (0.52-1.04); EST GLOMERULAR FILTRATION RATE 126.6 ML/MIN; Potassium 3.7 mmol/L (3.5-5.1); Total Protein 4.5 g/dL (6.3-8.2)
--- NOTE | 2023-10-05 09:32 | PCM.DS ---
Discharge Summary Date of Admission: 09/30/23 14:43 Date of Discharge: 10/05/23 Admitting Physician: JOÃO ROMAN MD Consults: Consults on Case 09/30/23 10:49 O [facility] Referral ONCE Primary Care Provider: ELGIN BETANCOURT Allergies Allergies latex Allergy (Verified 09/30/23 14:50) Hospital Summary - Hospital Course Hospital Course: is a 53 year old female with a pmhx of spina bifida, paraplegic insensate from her waist down, suprapubic cath,and hydrocephalus who presented to ED 09/30/23 with complaints of weakness, nausea, poor appetite, subjective fevers, fatigue, and foul-smelling urine that started approximately four days ago. She also endorses BLE edema with multiple wounds in various stages of healing. Patient reports that the she believes her wounds are secondary to a cockroach infestation at her residence. Patient with stoma and normally does self cath but currently has suprapubic cath due to weakness. Denies cough, sob, cp, abdominal pain, ZEE, dizziness, N/V/D. Septic on presentation. Venous doppler positive for Nonoccluding DVT left leg. Right leg negative for DVT. Therapeutic lovenox started with Eliquis to follow in 24 hours at 10mg bid x 7 days, then 5mg bid there after. Labs on admission remarkable for leukocytosis, hypokalemia, carbon dioxide at 8, elevated procal, and UA suspicious for infection. IP treatment with vancomycin/zosyn for the treatment of cellulitis and UTI. Central line placed 10/02/23. Wound culture with pseudomonas, Urine culture with Ecoli. Vanc discontinue 10/04/23. Zosyn continued. Patient did need 1 unit of blood during hospitalization. Hgb now stable. Acidosis/sepsis has resolved. Appetite and energy improved. Patient to discharge to SNF today. She will continue Zosyn for the treatment of Ecoli UTI/ and wounds with pseudomonas. She will complete a total of 10 days - through 10/09/23. She will be on Eliquis 10mg bid for a total of 7 days - through 10/07/23. On 10/08/23 she will begin Eliquis 5mg po bid. Patient will need OP follow up with PCP. She will require care for her central line at SNF and follow up CBC. Patient is agreeable to plan and stable for discharge. She does self cath and will continue at SNF. Discharge Note New Diagnosis: UTI/Sepsis/cellulitis/Acidosis New Medications: Zosyn/Eliquis Follow Up: PCP Latest Assessment & Plan (1) Sepsis Current Visit: Yes Status: Acute Assessment & Plan: -multifactoral with UTI/cellulitis -meets criteria with HR at 122, WBC at 13.8, and known source of infection -LA WNL -Vanc/zosyn started in ED, will continue -Lovenox -Blood and urine cultures pending - will follow and adjust abx accordingly 09/30: -Wound cultures pending -Urine culture with gram - ID -WBC now wnl -Continue vanc/zosyn for now- pending wound cultures h/o MRSA 10/01: -no longer meets sepsis criteria -wound and blood cult pending -ucult with ecoli - sensitivity to zosyn - will continue vanc/zosyn for now pending wound cultures (2) UTI (urinary tract infection) Current Visit: Yes Status: Acute Assessment & Plan: -UA suspicious for UTI, Culture with ecoli -see sepsis Code(s): N39.0 - URINARY TRACT INFECTION, SITE NOT SPECIFIED (3) Lower extremity cellulitis Current Visit: Yes Status: Acute Assessment & Plan: -BLE with multiple lesions -wound culture -pending -gabriel borders -elevated BLE -venous doppler BLE -Nonoccluding DVT left leg. Right leg negative for DVT. -H/o of MRSA -vanc/zosyn 10/03: -Wound cultures still pending- will continue vanc/zosyn - follow culture (4) Hypokalemia Current Visit: Yes Status: Acute Assessment & Plan: -Received 40meq po in ED with 40meq ordered IV - -TELE -Recheck according to protocol 10/01/23: -resolved 10/02/23: -potassium at 3.0 this morning - replenished, now at 4.1 - continue to monitor 10/02: -resolved Code(s): E87.6 - HYPOKALEMIA (5) High anion gap metabolic acidosis Current Visit: Yes Status: Acute Assessment & Plan: -beta hydroxybutyric acid level, salicylate level -bicarb drip- improving -BMP q4h 10/01: -resolved -dc bicarb gtt - oral bicarb 650mg bid - continue to monitor 10/02: -D/C oral bicarb - continue to monitor 10/03: -Resolved Code(s): E87.29 - OTHER ACIDOSIS (6) Spina bifida Current Visit: Yes Status: Acute Assessment & Plan: -noted, adds complexity -Patient self caths - will resume today Code(s): Q05.9 - SPINA BIFIDA, UNSPECIFIED (7) Generalized weakness Current Visit: Yes Status: Acute Assessment & Plan: -PT/OT -Most likely secondary to acidosis -improving 10/01: -improving 10/03: -Patient has been accepted to SNF when medically stable Code(s): R53.1 - WEAKNESS (8) Leukocytosis Current Visit: Yes Status: Acute Assessment & Plan: -Most likely secondary to UTI/Cellulitis 09/30: -resolved Code(s): D72.829 - ELEVATED WHITE BLOOD CELL COUNT, UNSPECIFIED (9) Tachycardia Current Visit: Yes Status: Acute Assessment & Plan: -EKG with sinus tach -Most likely secondary to infection/hypovolemia - IVF 10/02: -resolved Anemia -appears chronic -iron labs unremarkable -occult stools negative -continue to monitor if <7 - replenish 10/03: -Hgb at 6.8 this morning - will replenish DVT -Venous doppler showing Nonoccluding DVT left leg. Right leg negative for DVT -Eliquis started at 10mg po bid x 7 days, then 5mg bid -there after VTE: Eliquis PPI: Protonix Dispo: 2-3 days Code status: SCO I spent 35 minutes [id number] with the patient on the day of discharge performing discharge exam, discussing hospital stay and discharge instructions with patient and caregivers, preparation of discharge records, prescriptions & referral forms and addressing any questions/concerns the patient had as documented above. - Vitals & Intake/Output Vital Signs: Vital Signs Temperature 96.1 F 10/05/23 07:39 Pulse Rate 89 10/05/23 07:39 Respiratory Rate 13 10/05/23 07:39 Blood Pressure 93/59 10/05/23 07:39 O2 Sat by Pulse Oximetry 95 10/05/23 07:39 Intake & Output: Intake & Output 08/22/24 08/23/24 08/24/24 08/25/24 11:59 11:59 11:59 11:59 Intake Total [id number] 2378 Output Total [id number] 1485 Balance 1952 -110 1218 893 Weight 43.7 kg - Lab Result Diagrams: 10/05/23 05:25 10/05/23 04:00 Lab Results-Last 24 Hrs: Lab Results-Last 24 Hours 10/04/23 10/05/23 10/05/23 Range/Units 17:05 04:00 05:25 WBC 6.1 (3.98-10.04) x10^3/uL RBC 2.83 L (3.93-5.22) x10^6/uL Hgb 8.6 L D 8.5 L (11.2-15.7) g/dL Hct 27.4 L 26.6 L (34.1-44.9) % MCV 94.0 D (79.4-94.8) fL MCH 30.0 (25.6-32.2) pg MCHC 32.0 L (32.2-35.5) g/dL RDW 20.7 H (11.7-14.4) % Plt Count 308 (182-369) x10^3/uL MPV 8.9 L (9.4-12.3) fL Gran % 58.1 (34.0-71.1) % Immature Gran % (Auto) 2.4 H (0.001-0.429) % Nucleat RBC Rel Count 0.0 (0.00-0.2) % Eos # (Auto) 0.28 (0.04-0.36) x10^3/uL Immature Gran # (Auto) 0.15 H (0.001-0.031) x10^3u/L Absolute Lymphs (auto) 1.63 (1.18-3.74) x10^3/uL Absolute Monos (auto) 0.48 (0.24-0.86) x10^3/uL Absolute Nucleated RBC 0.00 (0.00-0.012) x10^3u/L Lymphocytes % 26.6 (19.3-51.7) % Monocytes % 7.8 (4.7-12.5) % Eosinophils % 4.6 (0.7-5.8) % Basophils % 0.5 (0.1-1.2) % Absolute Granulocytes 3.56 (1.56-6.13) x10^3/uL Basophils # 0.03 (0.01-0.08) x10^3/uL Sodium 135 (135-145) mmol/L Potassium 3.7 (3.5-5.1) mmol/L Chloride 110 H (98-107) mmol/L Carbon Dioxide 25 (22-30) mmol/L Anion Gap 3.6 L (5-15) MEQ/L BUN 6 L (7-17) mg/dL Creatinine 0.31 L (0.52-1.04) mg/dL Estimated GFR 126.6 ML/MIN Glucose 86 (74-106) mg/dL Calcium 7.5 L (8.4-10.2) mg/dL Total Bilirubin 0.30 (0.2-1.3) mg/dL AST 26 (14-36) U/L ALT 12 (0-35) U/L Alkaline Phosphatase 61 (38-126) U/L Serum Total Protein 4.5 L (6.3-8.2) g/dL Albumin 2.0 L (3.5-5.0) g/dL Micro Results-Entire Visit: Microbiology 09/30/23 08:02 Wound Culture - Final Leg - Left Lower Pseudomonas Aeruginosa Methicillin Resist Staph Aur 09/30/23 11:55 Blood Culture - Final Blood 09/30/23 11:15 Blood Culture - Final Blood 10/03/23 16:10 Urine Culture - Preliminary Catherized NO GROWTH TO DATE 09/30/23 11:36 Urine Culture - Final Catherized Escherichia Coli - Radiology Exams Ordered Rad Exams-Entire Visit: Radiology Procedures Category Date Time Status ABDOMEN AND PELVIS W CONTRAST [CT] Stat Exams 10/03/23 16:00 Completed - Procedures and Test Procedures and Tests throughout Hospitalization: Therapy Orders & Screens 09/30/23 16:16 PT Eval & Treat ( Order) ONCE Reason for Eval:: weakness Diagnosis: BLE cellulitis, Hypokalemia, UTI, Weakness Discharge Exam General Appearance: no apparent distress Neurologic Exam: alert, oriented x 3, cooperative Eye Exam: PERRL Ears, Nose, Throat Exam: normal ENT inspection Neck Exam: normal inspection Respiratory Exam: normal breath sounds, lungs clear Cardiovascular Exam: regular rate/rhythm Gastrointestinal/Abdomen Exam: soft, normal bowel sounds Pelvic Exam: deferred Rectal Exam: deferred Back Exam: normal inspection Extremity Exam: other (BLE with L>R edema 2+ pitting - multiple open wounds with superimposed cellulitis -improved) Skin Exam: other (see wound assessment) Wound Assessment: Skin/Wound Assessment Wound/Incision Assessment Start: 09/30/23 15:39 Text: Status: Active Freq: Q6H Protocol: Document 10/05/23 02:00 KD (Rec: 10/05/23 02:46 KD [id number]) Wound/Incision Assessment Buttock Wound Assessment Shift Assessment Wound Type incontinent dermatitis/ shearing Wound Stage Non Pressure Wound Drainage Amount None General Appearance Open to air Comment barrier cream applied prn BLE Wound Assessment Shift Assessment Wound Type CELLULITIS/ABRASIONS/BITES Wound Stage Non Pressure Wound Drainage Amount Moderate Drainage Description Serous General Appearance Open to air,Draining Surrounding Tissue Kidron,Edematous Comment barrier cream applied prn - remains true Wound Photo Photo Taken Yes Final Diagnosis/Problem List - Final Discharge Diagnosis/Problem (1) Sepsis Current Visit: Yes Status: Resolved (2) UTI (urinary tract infection) Current Visit: Yes Status: Acute Code(s): N39.0 - URINARY TRACT INFECTION, SITE NOT SPECIFIED (3) Lower extremity cellulitis Current Visit: Yes Status: Acute (4) Hypokalemia Current Visit: Yes Status: Resolved Code(s): E87.6 - HYPOKALEMIA (5) High anion gap metabolic acidosis Current Visit: Yes Status: Resolved Code(s): E87.29 - OTHER ACIDOSIS (6) Spina bifida Current Visit: Yes Status: Chronic Code(s): Q05.9 - SPINA BIFIDA, UNSPECIFIED (7) Generalized weakness Current Visit: Yes Status: Chronic Code(s): R53.1 - WEAKNESS (8) Leukocytosis Current Visit: Yes Status: Resolved Code(s): D72.829 - ELEVATED WHITE BLOOD CELL COUNT, UNSPECIFIED (9) Tachycardia Current Visit: Yes Status: Resolved Code(s): R00.0 - TACHYCARDIA, UNSPECIFIED (10) Anemia Current Visit: Yes Status: Acute Code(s): D64.9 - ANEMIA, UNSPECIFIED (11) DVT (deep venous thrombosis) Current Visit: Yes Status: Chronic Code(s): I82.409 - ACUTE EMBOLISM AND THOMBOS UNSP DEEP VN UNSP LOWER EXTREMITY - Discharge Disposition: DC TO ANY "OTHER" PENITENTIARY Condition: Stable Prescriptions: New Apixaban [Eliquis] See Rx Instructions .ROUTE .COMPLEX 30 Days #60 tablet Apixaban [Eliquis 2.5 mg Tablet] 10 mg PO BID 3 Days #6 tablet Heparin Flush 500 units/5 ml [Heparin Lock Flush 500 Units/5ml Syringe] 300 units IV DAILY Loperamide HCl 2 mg [Imodium 2 mg] 2 mg PO PRN PRN cap PRN Reason: Diarrhea Potassium Chloride Tab* [Klor Con] 20 meq PO BID tablet Piperacillin/Tazobactam 3.375G [Piperacillin/Tazobactam] 3.375 gm IV Q6HT NaCl 0.9% 10 ML FLUSH [Sodium Chloride 0.9% 10 ML FLUSH Syringe] 10 ml IJ Q8H Ondansetron HCl 4 mg/2 ml [Zofran 4 MG/2 ML VIAL] 4 mg IV Q6H PRN PRN PRN Reason: Nausea/Vomiting [id number]-[id number],Iso [Zosyn 3.375 gm/50 ml Galaxy] 3.375 gm IV Q6H 5 Days #20 iv piggy Discontinued Potassium Chloride Tab* [Klor Con] 2 tab PO DAILY Additional Instructions: Patient with need CBC tomorrow Eliquis 10mg Bid until 10/07/23, then Eliquis 5mg po bid there after Follow up with: ELGIN BETANCOURT MD [Primary Care Provider] -
[2023-10-05 17:07] VITALS: BP 125/73; PULSE 113; RESP 17; TEMP 98.4; O2SAT 99
== END 2023-10-05 19:10 | DRG 872 ==
LOC: ED 10:39 → MED SURG 14:43 → OBSVTOIN 14:43
PROVIDERS: ADMIT Internal Medicine; ATTEND Internal Medicine
PROC: 05HY33Z Insertion of Infusion Device into Upper Vein, Percutaneous Approach (ICD-10-PCS; principal; 2023-10-01)
DX: A41.9 Sepsis, unspecified organism (principal); N39.0 Urinary tract infection, site not specified; L03.116 Cellulitis of left lower limb; L03.115 Cellulitis of right lower limb; E87.29 Other acidosis; I82.402 Acute embolism and thrombosis of unspecified deep veins of left lower extremity; Z59.19 Other inadequate housing; B96.20 Unspecified Escherichia coli [E. coli] as the cause of diseases classified elsewhere; E87.6 Hypokalemia; Q05.9 Spina bifida, unspecified; R53.1 Weakness; D72.829 Elevated white blood cell count, unspecified; R00.0 Tachycardia, unspecified; D64.9 Anemia, unspecified; Z79.899 Other long term (current) drug therapy
CPT/HCPCS: 0241U; 36000; 36415; 36430; 36573; 51702; 71045; 74177; 80048; 80053; 80179; 80202; 81001; 82010; 82274; 82607; 82728; 82746; 83540; 83550; 83605; 83735; 84145; 85014; 85018; 85025; 85027; 85652; 86140; 86850; 86900; 86901; 86922; 87040; 87070; 87077; 87086; 87186; 87493; 93005; 93041; 93970; 94760; 94762; 96360; 96361; 96365; 96367; 97161; 97530; 99285; P9016; Q3014; J1642; J1650; J3370; J3480; A9270-GY; G0328

== ENCOUNTER 2023-10-11 17:49 | Emergency (ER) | payer MEDICAID ==
[2023-10-11 17:52] VITALS: RESP 18; TEMP 97.2
--- NOTE | 2023-10-11 18:24 | ERPHSYRPT ---
- History of Present Illness Time Seen by Provider: 10/11/23 17:54 Source: patient, EMS, assisted records Exam Limitations: no limitations Patient Subjective Stated Complaint: pt here to have fc removed. she states it is leaking. she self caths herself at home.pt was just dc from assisted today. Triage Nursing Assessment: pt alert, arrived per ems. alert, resp easy, skin w/d/p. has healing insect bites to legs, pt has hx of spina bifida and unable to walk she has urostomy to right side of abd with urine leaking. has iv to right side of neck Physician History: 53 years old female with multiple medical problems including spina bifida, paraplegia, chronic urinary retention with martini pouch/urostomy needing self- catheterization, recently admitted for cellulitis, was discharged to assisted for IV antibiotic, was discharged today, is brought in the ER as they did not take out her catheter. Patient does not want to keep catheter in as it does not seem draining and has been having some leaking around. Denies any abdominal pain. No fever or chills reported. Allergies/Adverse Reactions: latex Allergy (Verified 10/11/23 17:53) Hx Tetanus, Diphtheria Vaccination/Date Given: No Hx Influenza Vaccination/Date Given: No Hx Pneumococcal Vaccination/Date Given: Yes Immunizations Up to Date: Yes Travel Risk - International Travel Have you traveled outside of the country in past 3 weeks: No - Emerging Infectious Disease Are you exhibiting symptoms associated with any current EIDs: No - Review of Systems Constitutional: No Symptoms Ears, Nose, & Throat: No Symptoms Respiratory: No Symptoms Cardiac: No Symptoms Genitourinary Symptoms: Urinary Retention Musculoskeletal: Arthralgias Skin: Skin Lesions - Past Medical History Pertinent Past Medical History: Yes Neurological History: Other ENT History: No Pertinent History Cardiac History: No Pertinent History Respiratory History: No Pertinent History Endocrine Medical History: Adrenal Insufficiency Musculoskeletal History: No Pertinent History GI Medical History: No Pertinent History History: No Pertinent History Psycho-Social History: No Pertinent History Female Reproductive Disorders: No Pertinent History Other Medical History: spina bifida, Thoracolumbar fusion, L sided ventricular peritoneal shunt, - Past Surgical History Past Surgical History: Yes Neuro Surgical History: No Pertinent History Cardiac: No Pertinent History Respiratory: No Pertinent History Gastrointestinal: No Pertinent History, Appendectomy Genitourinary: Other Musculoskeletal: No Pertinent History Other Surgical History: stoma tube cath. supra pubic cath. shunt. back. bladder. breast reduction - Female History Hx Last Menstrual Period: post Hx Now: No - Social History Smoking Status: Never smoker Exposure to second hand smoke: No Drug Use: none Patient Lives Alone: No - Social Determinants of Health Will the patient participate in the screening: Yes Do you worry about a steady place to live?: No Do you have any problems with any of the following?: Pest (bugs,ants,or mice), Mold In the past 12 months,have you had to go without utilities?: No Transportation Issues: No Has anyone in your support network made you feel unsafe?: No Have you or anyone in your house had to go without enough: No Comment: yanes problem in the home - Nursing Vital Signs Nursing Vital Signs: Initial Vital Signs Temperature 97.2 F 10/11/23 17:51 Pulse Rate 109 H 10/11/23 17:51 Respiratory Rate 18 10/11/23 17:51 Blood Pressure 121/74 10/11/23 17:51 O2 Sat by Pulse Oximetry 95 10/11/23 17:51 Pain Scale Pain Intensity 0 - Physical Exam General Appearance: no apparent distress Ears, Nose, Throat Exam: normal ENT inspection Neck Exam: normal inspection, full range of motion Respiratory Exam: normal breath sounds, lungs clear Cardiovascular Exam: regular rate/rhythm, normal heart sounds Gastrointestinal/Abdomen Exam: soft, normal bowel sounds, tenderness (Central scar gabriel, urinary pouch on the right with catheter in place.) Extremity Exam: pedal edema, swelling Neurologic Exam: alert, oriented x 3, cooperative SpO2 Interpretation: normal SpO2: 95 O2 Delivery: Room Air - Progress Progress: improved Progress Note: 10/11/23 18:25 53 years old female with multiple medical problems including spina bifida, paraplegia, chronic urinary retention with martini pouch/urostomy needing self- catheterization, recently admitted for cellulitis, was discharged to assisted for IV antibiotic, was discharged today, is brought in the ER as they did not take out her catheter. Patient does not want to keep catheter in as it does not seem draining and has been having some leaking around. Denies any abdominal pain. No fever or chills reported. Balloon of Brown catheter is deflated and catheter is removed. No bleeding or complication. Stable for discharge. 10/11/23 18:28 Counseled pt/family regarding: diagnosis, need for follow-up Medical Desision Making - Independent Historian Additional History obtained from: EMS - Diagnostic Testing Diagnostic test were ordered, analyzed, and reviewed by me: No - Departure Departure Disposition: Home Clinical Impression: Encounter for Brown catheter removal Condition: Stable Critical Care Time: No Referrals: ELGIN BETANCOURT MD [Primary Care Provider] - Follow up with PCP 1 day Instructions: Urinary Retention (DC) Additional Instructions: Continue with intermittent self-catheterization as routine. Follow-up with primary care for reevaluation. Return to ER for any retention, abdominal pain etc.
[2023-10-11 19:16] VITALS: O2SAT 98
[2023-10-11] MEDS ORDERED: CORTISPORIN EAR DROPS 10 ML SUSPENSION OT ONE (19:26)
[2023-10-11 20:46] VITALS: BP 118/80; PULSE 90
== END 2023-10-11 22:20 | disposition home or self-care (01) ==
LOC: ED 17:49
DX: Z46.82 Encounter for fitting and adjustment of non-vascular catheter (principal); Z59.19 Other inadequate housing; Z59.89 Other problems related to housing and economic circumstances
CPT/HCPCS: 99282; A9270-GY